=== PATIENT | female | born 1935 | race Caucasian/White ===

== ENCOUNTER 2018-07-19 08:00 | Inpatient (IN) ==
[2018-07-19] MEDS ORDERED: SODIUM CHLORIDE 0.9% 500 ML IV STA (08:29)
[2018-07-19] MEDS ORDERED: PIPERACILLIN/TAZOBACTAM 3,375 MG in SODIUM CHLORIDE 0.9% 100 ML IV STA (08:29)
[2018-07-19 08:45] LABS: Basophils # 0.1 10*3/uL (0.0-0.2); Basophils % 0.6 % (0.0-0.8); Eosinophils # 0.3 10*3/uL (0.0-0.87); Eosinophils % 3.3 % (0.00-10.9); Hematocrit 34.2 VOL% (35.7-47.0); Hemoglobin 10.7 GM/DL (12.0-16.0); Immature Granulocytes % 1.1 %; Immature Granulocytes Absolute 0.11 #; Lymphocytes # 1.6 10*3/uL (1.4-4.0); Lymphocytes % 15.9 % (21.3-54.2); Mean Corpuscular HGB Conc 31.3 GM/DL (32-36); Mean Corpuscular Hemoglobin 32 PG (27-34); Mean Corpuscular Volume 103.3 FL (87-102); Mean Platelet Volume 11.6 FL (9.6-12.0); Monocytes % 10.4 % (1.7-12.7); NRBC # 0.06 10*3/uL; Neutrophils # 6.7 10*3/uL (1.4-7.4); Neutrophils % 68.7 % (38.7-73.9); Platelet Count 160 T/CUMM (130-400); Red Blood Count 3.31 MC/CUMM (3.8-5.5); Red Cell Distribution Width 18.2 % (9.3-17.3); White Blood Count 9.8 T/CUMM (4-12)
[2018-07-19 08:54] LABS: Apearance,Urine Slightly Hazy (Clear); Bilirubin,Urine Negative (Negative); Blood, Urine Negative (Negative); Glucose,Urine (UA) >=500 mg/dL (Negative); Ketones,Urine Negative (Negative); Nitrite,Urine Negative (Negative); Protein,Urine 30 MG/DL; RBC,Urine 2 /HPF (0-4); Squamous Epithelial Cell,Urine Occasional /HPF (0-10); Urine Color Yellow (Yellow); Urine Specific Gravity 1.015 (1.001-1.035); Urine Urobilinogen < 2.0 EU/DL (0.2-1.0); WBC,Urine <1 /HPF (0-6)
[2018-07-19 09:12] LABS: Albumin 2.7 G/DL (3.4-5.0); Bilirubin,Total 0.7 MG/DL (0.2-1.0); Calcium 9.2 MG/DL (8.5-10.1); Osmolality,Calculated 301.8 MOS/KG (273-304); Potassium 4.6 MMOL/L (3.5-5.1); Total Protein 7.8 G/DL (6.4-8.3)
[2018-07-19] MEDS ORDERED: PIPERACILLIN/TAZOBACTAM 3,375 MG VIAL IV ONE (09:14)
[2018-07-19] MEDS: ENOXAPARIN 40 MG/0.4 ML SYRINGE SUBCUT SCH (12:55)
[2018-07-19] MEDS: DORNASE ALFA 2.5 MG/2.5 ML VIAL RESP TX SCH ×2 (13:15→20:45)
[2018-07-19] MEDS: ALBUTEROL/IPRATROPIUM 3 ML NEB RESP TX SCH ×2 (13:15→20:45)
[2018-07-19] MEDS: PIPERACILLIN/TAZOBACTAM 3,375 MG in SODIUM CHLORIDE 0.9% 100 ML IV SCH (16:01)
[2018-07-19] MEDS: ONDANSETRON 4 MG/2 ML VIAL IV PRN (22:53)
[2018-07-20] MEDS: PIPERACILLIN/TAZOBACTAM 3,375 MG in SODIUM CHLORIDE 0.9% 100 ML IV SCH ×3 (00:15→16:59)
[2018-07-20] MEDS: ALBUTEROL/IPRATROPIUM 3 ML NEB RESP TX SCH ×4 (00:30→19:48)
[2018-07-20 05:42] LABS: Basophils % 0.3 % (0.0-0.8); Eosinophils # 0.1 10*3/uL (0.0-0.87); Eosinophils % 0.8 % (0.00-10.9); Hematocrit 31.4 VOL% (35.7-47.0); Immature Granulocytes Absolute 0.11 #; Lymphocytes # 0.8 10*3/uL (1.4-4.0); Lymphocytes % 7.4 % (21.3-54.2); Mean Corpuscular HGB Conc 31.8 GM/DL (32-36); Mean Corpuscular Hemoglobin 33 PG (27-34); Mean Corpuscular Volume 102.6 FL (87-102); Mean Platelet Volume 11.3 FL (9.6-12.0); Monocytes # 0.4 10*3/uL (0.11-0.8); Neutrophils # 9.2 10*3/uL (1.4-7.4); Neutrophils % 86.5 % (38.7-73.9); Platelet Count 148 T/CUMM (130-400); Red Blood Count 3.06 MC/CUMM (3.8-5.5); Red Cell Distribution Width 18.6 % (9.3-17.3); White Blood Count 10.6 T/CUMM (4-12)
[2018-07-20 06:20] LABS: Calcium 8.7 MG/DL (8.5-10.1); Osmolality,Calculated 303.4 MOS/KG (273-304); Potassium 3.8 MMOL/L (3.5-5.1); Thyroid Stimulating Hormone 0.647 uIU/ml (0.358-3.74)
[2018-07-20] MEDS: DORNASE ALFA 2.5 MG/2.5 ML VIAL RESP TX SCH ×2 (06:48→19:49)
[2018-07-20] MEDS: ENOXAPARIN 40 MG/0.4 ML SYRINGE SUBCUT SCH (10:45)
[2018-07-20] MEDS: INSULIN LISPRO 100 UNIT/ML SUBCUT SCH ×2 (13:32→19:15)
[2018-07-20] MEDS ORDERED: traMADol 50 MG TABLET PO PRN (14:50)
[2018-07-20] MEDS: ONDANSETRON 4 MG/2 ML VIAL IV PRN (15:11)
[2018-07-20] MEDS: traMADol 50 MG TABLET PO PRN (23:05)
[2018-07-21] MEDS: ALBUTEROL/IPRATROPIUM 3 ML NEB RESP TX SCH ×4 (01:11→19:44)
[2018-07-21] MEDS: INSULIN LISPRO 100 UNIT/ML SUBCUT SCH ×4 (01:32→18:09)
[2018-07-21] MEDS: PIPERACILLIN/TAZOBACTAM 3,375 MG in SODIUM CHLORIDE 0.9% 100 ML IV SCH ×2 (01:32→08:02)
[2018-07-21 04:55] LABS: Basophils # 0.1 10*3/uL (0.0-0.2); Basophils % 0.6 % (0.0-0.8); Eosinophils # 0.3 10*3/uL (0.0-0.87); Eosinophils % 3.3 % (0.00-10.9); Hematocrit 30.8 VOL% (35.7-47.0); Hemoglobin 9.5 GM/DL (12.0-16.0); Immature Granulocytes % 0.7 %; Immature Granulocytes Absolute 0.06 #; Lymphocytes # 1.8 10*3/uL (1.4-4.0); Lymphocytes % 20.2 % (21.3-54.2); Mean Corpuscular HGB Conc 30.8 GM/DL (32-36); Mean Corpuscular Hemoglobin 32 PG (27-34); Mean Corpuscular Volume 104.1 FL (87-102); Mean Platelet Volume 11.5 FL (9.6-12.0); Monocytes # 0.6 10*3/uL (0.11-0.8); Monocytes % 6.5 % (1.7-12.7); NRBC # 0.04 10*3/uL; Neutrophils # 6.2 10*3/uL (1.4-7.4); Neutrophils % 68.7 % (38.7-73.9); Platelet Count 147 T/CUMM (130-400); Red Blood Count 2.96 MC/CUMM (3.8-5.5); Red Cell Distribution Width 18.2 % (9.3-17.3); White Blood Count 9.1 T/CUMM (4-12)
[2018-07-21 05:18] LABS: Calcium 8.5 MG/DL (8.5-10.1); Osmolality,Calculated 299.7 MOS/KG (273-304); Potassium 4.3 MMOL/L (3.5-5.1)
[2018-07-21] MEDS: DORNASE ALFA 2.5 MG/2.5 ML VIAL RESP TX SCH ×2 (07:11→19:49)
[2018-07-21] MEDS: ENOXAPARIN 40 MG/0.4 ML SYRINGE SUBCUT SCH (08:01)
[2018-07-21] MEDS: cefTRIAXone 1,000 MG in SYRINGE 1 EACH IV SCH (10:58)
[2018-07-21] MEDS: INSULIN GLARGINE 100 UNIT/ML SUBCUT SCH (13:43)
[2018-07-21] MEDS: AZITHROMYCIN INJ 500 MG in SODIUM CHLORIDE 0.9% 250 ML IV SCH (15:26)
[2018-07-21] MEDS: traMADol 50 MG TABLET PO PRN ×2 (18:09→22:46)
[2018-07-21] MEDS: ONDANSETRON 4 MG/2 ML VIAL IV PRN (22:47)
[2018-07-22] MEDS: INSULIN LISPRO 100 UNIT/ML SUBCUT SCH ×4 (01:52→18:04)
[2018-07-22] MEDS: ALBUTEROL/IPRATROPIUM 3 ML NEB RESP TX SCH ×4 (01:58→19:17)
[2018-07-22 06:52] LABS: Prealbumin 16.9 MG/DL (20-40)
[2018-07-22] MEDS: DORNASE ALFA 2.5 MG/2.5 ML VIAL RESP TX SCH ×3 (07:12→19:21)
[2018-07-22] MEDS: MULTIVITAMIN LIQUID (CENTRUM) 60 ML BOTTLE PEG SCH (09:47)
[2018-07-22] MEDS: traMADol 50 MG TABLET PO PRN ×3 (09:47→22:29)
[2018-07-22] MEDS: cefTRIAXone 1,000 MG in SYRINGE 1 EACH IV SCH (09:48)
[2018-07-22] MEDS: ENOXAPARIN 40 MG/0.4 ML SYRINGE SUBCUT SCH (09:48)
[2018-07-22] MEDS: INSULIN GLARGINE 100 UNIT/ML SUBCUT SCH (09:48)
[2018-07-22] MEDS: AZITHROMYCIN INJ 500 MG in SODIUM CHLORIDE 0.9% 250 ML IV SCH (09:53)
[2018-07-22] MEDS: NYSTATIN 500,000 UNIT/5 ML UDCUP SWISH/SWAL SCH ×3 (13:52→22:30)
[2018-07-23] MEDS: ALBUTEROL/IPRATROPIUM 3 ML NEB RESP TX SCH ×4 (00:24→19:06)
[2018-07-23] MEDS: INSULIN LISPRO 100 UNIT/ML SUBCUT SCH ×4 (00:27→17:02)
[2018-07-23] MEDS: traMADol 50 MG TABLET PO PRN ×2 (01:11→17:02)
[2018-07-23] MEDS: DORNASE ALFA 2.5 MG/2.5 ML VIAL RESP TX SCH ×2 (07:33→19:15)
[2018-07-23] MEDS: ENOXAPARIN 40 MG/0.4 ML SYRINGE SUBCUT SCH (08:49)
[2018-07-23] MEDS: NYSTATIN 500,000 UNIT/5 ML UDCUP SWISH/SWAL SCH ×4 (08:49→23:37)
[2018-07-23] MEDS: INSULIN GLARGINE 100 UNIT/ML SUBCUT SCH (08:49)
[2018-07-23] MEDS: MULTIVITAMIN LIQUID (CENTRUM) 60 ML BOTTLE PEG SCH (08:50)
[2018-07-23] MEDS: cefTRIAXone 1,000 MG in SYRINGE 1 EACH IV SCH (08:50)
[2018-07-23] MEDS: AZITHROMYCIN INJ 500 MG in SODIUM CHLORIDE 0.9% 250 ML IV SCH (08:51)
[2018-07-23] MEDS ORDERED: INSULIN GLARGINE 100 UNIT/ML SUBCUT ONE (11:30)
[2018-07-24] MEDS: ALBUTEROL/IPRATROPIUM 3 ML NEB RESP TX SCH ×3 (00:39→14:03)
[2018-07-24] MEDS: INSULIN LISPRO 100 UNIT/ML SUBCUT SCH ×3 (01:07→11:45)
[2018-07-24 05:46] LABS: Calcium 9.7 MG/DL (8.5-10.1); Osmolality,Calculated 296.3 MOS/KG (273-304); Potassium 4.7 MMOL/L (3.5-5.1); Prealbumin 15.7 MG/DL (20-40)
[2018-07-24] MEDS: ENOXAPARIN 40 MG/0.4 ML SYRINGE SUBCUT SCH (08:33)
[2018-07-24] MEDS: cefTRIAXone 1,000 MG in SYRINGE 1 EACH IV SCH (08:34)
[2018-07-24] MEDS: MULTIVITAMIN LIQUID (CENTRUM) 60 ML BOTTLE PEG SCH (08:34)
[2018-07-24] MEDS: NYSTATIN 500,000 UNIT/5 ML UDCUP SWISH/SWAL SCH ×2 (08:34→12:35)
[2018-07-24] MEDS: AZITHROMYCIN INJ 500 MG in SODIUM CHLORIDE 0.9% 250 ML IV SCH (08:34)
[2018-07-24] MEDS: DORNASE ALFA 2.5 MG/2.5 ML VIAL RESP TX SCH (08:53)
[2018-07-24] MEDS ORDERED: INSULIN GLARGINE 100 UNIT/ML SUBCUT SCH (09:00)
[2018-07-24] MEDS: traMADol 50 MG TABLET PO PRN (12:36)
[2018-07-24 16:37] VITALS: BP 158/90
== END 2018-07-24 17:11 | disposition home health service (06) | DRG 178 ==
LOC: EDBD → EDUNIT# → N.ED 08:00 → N.EDINP 10:13 → N.2E 10:59
PROVIDERS: ADMIT Internal Medicine; ATTEND Internal Medicine

== ENCOUNTER 2018-10-16 05:03 | Inpatient (IN) ==
[2018-10-16] MEDS ORDERED: ONDANSETRON 4 MG/2 ML VIAL IV STA (05:15)
[2018-10-16 05:56] LABS: Basophils # 0.1 10*3/uL (0.0-0.2); Basophils % 0.3 % (0.0-0.8); Eosinophils % 0.1 % (0.00-10.9); Hematocrit 36.7 VOL% (35.7-47.0); Hemoglobin 11.8 GM/DL (12.0-16.0); Immature Granulocytes % 0.7 %; Immature Granulocytes Absolute 0.12 #; Lymphocytes # 0.5 10*3/uL (1.4-4.0); Mean Corpuscular HGB Conc 32.2 GM/DL (32-36); Mean Corpuscular Hemoglobin 33 PG (27-34); Mean Corpuscular Volume 102.2 FL (87-102); Mean Platelet Volume 11.5 FL (9.6-12.0); Monocytes # 0.2 10*3/uL (0.11-0.8); Monocytes % 1.2 % (1.7-12.7); NRBC # 0.08 10*3/uL; Neutrophils # 16.2 10*3/uL (1.4-7.4); Neutrophils % 94.7 % (38.7-73.9); Platelet Count 172 T/CUMM (130-400); Red Blood Count 3.59 MC/CUMM (3.8-5.5); Red Cell Distribution Width 17.4 % (9.3-17.3); White Blood Count 17.1 T/CUMM (4-12)
[2018-10-16 06:13] LABS: Alanine Aminotransferase 29 U/L (13-56); Albumin 3.1 G/DL (3.4-5.0); Alkaline Phosphatase 100 U/L (45-117); Aspartate Amino Transferase 44 U/L (0-37); Blood Urea Nitrogen 55 MG/DL (7-18); Calcium 9.5 MG/DL (8.5-10.1); Glucose 311 MG/DL (74-106); Lipase < 50.0 U/L (73-393); Osmolality,Calculated 296.1 MOS/KG (273-304); Potassium 3.9 MMOL/L (3.5-5.1); Sodium 135 MMOL/L (136-145); Total Protein 7.6 G/DL (6.4-8.3)
[2018-10-16 06:22] LABS: Band Neutrophils 2 % (0-10); Hypochromasia 1+; Lymphocytes 1 % (20-55); Platelet Estimate Adequate; Segmented Neutrophils 96 % (50-85); Total Cells Counted 100
[2018-10-16] MEDS: PANTOPRAZOLE 40 MG TABLET PO SCH (09:55)
[2018-10-16] MEDS: PIPERACILLIN/TAZOBACTAM 3,375 MG in SODIUM CHLORIDE 0.9% 100 ML IV SCH ×2 (09:56→17:33)
[2018-10-16] MEDS: SODIUM CHLORIDE 0.9% 1,000 ML IV SCH (10:40)
[2018-10-16] MEDS: ONDANSETRON 4 MG/2 ML VIAL IV PRN (10:44)
[2018-10-16 10:52] LABS: Troponin I 0.677 NG/ML (0.00-0.045)
[2018-10-16 11:05] LABS: Apearance,Urine Slightly Hazy (Clear); Bilirubin,Urine Negative (Negative); Blood, Urine Negative (Negative); Glucose,Urine (UA) 50 mg/dL (Negative); Ketones,Urine Negative (Negative); Nitrite,Urine Negative (Negative); Protein,Urine 30 MG/DL; RBC,Urine 7 /HPF (0-4); Squamous Epithelial Cell,Urine Few /HPF (0-10); Urine Color Yellow (Yellow); Urine Specific Gravity > 1.060 (1.001-1.035); Urine Urobilinogen < 2.0 EU/DL (0.2-1.0); WBC,Urine 1 /HPF (0-6)
[2018-10-16] MEDS: POLYETHYLENE GLYCOL POWDER 17 GM PACK PO SCH (11:45)
[2018-10-16] MEDS ORDERED: GLUCAGON 1 MG VIAL IM PRN (13:45)
[2018-10-16] MEDS ORDERED: DEXTROSE 50% 25 GM/50 ML VIAL IV PRN (13:45)
[2018-10-16] MEDS ORDERED: INFLUENZA VIRUS VACCINE 0.5 ML SYRINGE IM ONE (15:28)
[2018-10-16 16:51] LABS: Troponin I 0.625 NG/ML (0.00-0.045)
[2018-10-16] MEDS: INSULIN LISPRO 100 UNIT/ML SUBCUT SCH ×2 (17:25→23:35)
[2018-10-16] MEDS: ATORVASTATIN 20 MG TABLET PO SCH (22:17)
[2018-10-16] MEDS: traZODone 50 MG TABLET PO SCH (23:35)
[2018-10-17] MEDS: PIPERACILLIN/TAZOBACTAM 3,375 MG in SODIUM CHLORIDE 0.9% 100 ML IV SCH ×3 (00:28→17:06)
[2018-10-17] MEDS: ONDANSETRON 4 MG/2 ML VIAL IV PRN (03:19)
[2018-10-17] MEDS: INSULIN LISPRO 100 UNIT/ML SUBCUT SCH ×6 (04:17→21:31)
[2018-10-17 07:00] LABS: Bilirubin,Direct 0.24 MG/DL (0.0-0.20); Bilirubin,Indirect 0.6 MG/DL (0.0-1.0); Bilirubin,Total 0.8 MG/DL (0.2-1.0); Total Protein 5.2 G/DL (6.4-8.3)
[2018-10-17] MEDS: DULoxetine 30 MG CAPSULE PO SCH (08:13)
[2018-10-17] MEDS: POLYETHYLENE GLYCOL POWDER 17 GM PACK PO SCH ×2 (08:13→21:32)
[2018-10-17] MEDS: LEVOTHYROXINE 150 MCG TABLET PO SCH (08:13)
[2018-10-17] MEDS: PANTOPRAZOLE 40 MG TABLET PO SCH (08:13)
[2018-10-17] MEDS: INSULIN ASPART PROTAMINE/ASPART 70/30 100 UNIT/ML SUBCUT SCH (08:13)
[2018-10-17] MEDS: SODIUM CHLORIDE 0.9% 1,000 ML IV SCH ×3 (08:57→17:07)
[2018-10-17] MEDS ORDERED: POLYETHYLENE GLYCOL POWDER 17 GM PACK PO SCH (09:00)
[2018-10-17 09:09] LABS: Osmolality,Calculated 304.1 MOS/KG (273-304); Potassium 3.9 MMOL/L (3.5-5.1)
[2018-10-17] MEDS ORDERED: traMADol 50 MG TABLET PO PRN (10:59)
[2018-10-17] MEDS: ZINC OXIDE PASTE 113 GM TUBE TOP SCH ×2 (14:58→21:32)
[2018-10-17] MEDS: LACTULOSE 20 GM/30 ML UDCUP PO SCH (21:31)
[2018-10-17] MEDS: ATORVASTATIN 20 MG TABLET PO SCH (21:32)
[2018-10-17] MEDS: traZODone 50 MG TABLET PO SCH (21:32)
[2018-10-18] MEDS: PIPERACILLIN/TAZOBACTAM 3,375 MG in SODIUM CHLORIDE 0.9% 100 ML IV SCH ×2 (00:14→09:12)
[2018-10-18 05:44] LABS: Calcium 8.4 MG/DL (8.5-10.1)
[2018-10-18] MEDS: POLYETHYLENE GLYCOL POWDER 17 GM PACK PO SCH ×3 (09:00→21:01)
[2018-10-18] MEDS: LACTULOSE 20 GM/30 ML UDCUP PO SCH (09:00)
[2018-10-18] MEDS: INSULIN LISPRO 100 UNIT/ML SUBCUT SCH ×4 (09:12→20:14)
[2018-10-18] MEDS: PANTOPRAZOLE 40 MG TABLET PO SCH (09:12)
[2018-10-18] MEDS: LEVOTHYROXINE 150 MCG TABLET PO SCH (09:12)
[2018-10-18] MEDS: DULoxetine 30 MG CAPSULE PO SCH (09:12)
[2018-10-18] MEDS: ZINC OXIDE PASTE 113 GM TUBE TOP SCH ×2 (09:13→20:49)
[2018-10-18] MEDS: INSULIN ASPART PROTAMINE/ASPART 70/30 100 UNIT/ML SUBCUT SCH (09:13)
[2018-10-18] MEDS ORDERED: traZODone 50 MG TABLET PO PRN (12:13)
[2018-10-18] MEDS: MEROPENEM 500 MG in SODIUM CHLORIDE 0.9% 100 ML IV SCH (14:20)
[2018-10-18] MEDS: ASPIRIN CHEW 81 MG TABLET PO SCH (15:15)
[2018-10-18] MEDS: SODIUM CHLORIDE 0.9% 1,000 ML IV SCH ×2 (19:00→20:45)
[2018-10-18] MEDS: INSULIN GLARGINE 100 UNIT/ML SUBCUT SCH (20:48)
[2018-10-18] MEDS: ATORVASTATIN 20 MG TABLET PO SCH (20:48)
[2018-10-18] MEDS: ONDANSETRON 4 MG/2 ML VIAL IV PRN (22:23)
[2018-10-19] MEDS: MEROPENEM 500 MG in SODIUM CHLORIDE 0.9% 100 ML IV SCH ×2 (00:08→18:18)
[2018-10-19 05:01] LABS: Basophils % 0.3 % (0.0-0.8); Eosinophils # 0.4 10*3/uL (0.0-0.87); Eosinophils % 6.4 % (0.00-10.9); Hematocrit 27.1 VOL% (35.7-47.0); Hemoglobin 8.6 GM/DL (12.0-16.0); Immature Granulocytes % 0.3 %; Immature Granulocytes Absolute 0.02 #; Lymphocytes # 0.7 10*3/uL (1.4-4.0); Mean Corpuscular HGB Conc 31.7 GM/DL (32-36); Mean Corpuscular Hemoglobin 33 PG (27-34); Mean Platelet Volume 11.9 FL (9.6-12.0); Monocytes # 0.3 10*3/uL (0.11-0.8); Monocytes % 4.7 % (1.7-12.7); NRBC # 0.03 10*3/uL; Neutrophils # 4.5 10*3/uL (1.4-7.4); Neutrophils % 76.3 % (38.7-73.9); Red Blood Count 2.63 MC/CUMM (3.8-5.5); Red Cell Distribution Width 17.6 % (9.3-17.3); White Blood Count 5.9 T/CUMM (4-12)
[2018-10-19 05:06] LABS: Platelet Count 67 T/CUMM (130-400)
[2018-10-19 05:57] LABS: Free T4 (Free Thyroxine) 1.04 NG/DL (0.76-1.46); Thyroid Stimulating Hormone 1.13 uIU/ml (0.358-3.74)
[2018-10-19] MEDS: SODIUM CHLORIDE 0.9% 1,000 ML IV SCH ×3 (06:23→16:23)
[2018-10-19 06:46] LABS: Hypochromasia Slight; Macrocytosis 1+; Platelet Estimate Decreased; Polychromasia Few; Tear Drop Cells Few
[2018-10-19] MEDS: INSULIN LISPRO 100 UNIT/ML SUBCUT SCH ×4 (08:53→22:02)
[2018-10-19] MEDS: ASPIRIN CHEW 81 MG TABLET PO SCH (08:54)
[2018-10-19] MEDS: PANTOPRAZOLE 40 MG TABLET PO SCH (08:54)
[2018-10-19] MEDS: INSULIN GLARGINE 100 UNIT/ML SUBCUT SCH ×2 (08:54→22:01)
[2018-10-19] MEDS: DULoxetine 30 MG CAPSULE PO SCH (08:55)
[2018-10-19] MEDS: LEVOTHYROXINE 150 MCG TABLET PO SCH (08:55)
[2018-10-19] MEDS: ZINC OXIDE PASTE 113 GM TUBE TOP SCH ×2 (08:55→22:03)
[2018-10-19] MEDS: POLYETHYLENE GLYCOL POWDER 17 GM PACK PO SCH ×2 (08:55→22:03)
[2018-10-19 10:51] LABS: Calcium 7.8 MG/DL (8.5-10.1); Potassium 4.5 MMOL/L (3.5-5.1)
[2018-10-19] MEDS ORDERED: cefTRIAXone 2,000 MG in SYRINGE 1 EACH IV SCH (11:00)
[2018-10-19] MEDS ORDERED: diphenhydrAMINE 50 MG/1 ML VIAL IV ONE (12:40)
[2018-10-19] MEDS: ATORVASTATIN 20 MG TABLET PO SCH (22:03)
[2018-10-20] MEDS: SODIUM CHLORIDE 0.9% 1,000 ML IV SCH ×3 (02:05→16:30)
[2018-10-20] MEDS: MEROPENEM 500 MG in SODIUM CHLORIDE 0.9% 100 ML IV SCH (05:50)
[2018-10-20 06:39] LABS: Basophils % 0.4 % (0.0-0.8); Eosinophils # 0.5 10*3/uL (0.0-0.87); Eosinophils % 6.9 % (0.00-10.9); Hematocrit 30.9 VOL% (35.7-47.0); Hemoglobin 9.7 GM/DL (12.0-16.0); Immature Granulocytes % 0.8 %; Immature Granulocytes Absolute 0.06 #; Lymphocytes # 0.8 10*3/uL (1.4-4.0); Lymphocytes % 10.9 % (21.3-54.2); Mean Corpuscular HGB Conc 31.4 GM/DL (32-36); Mean Corpuscular Hemoglobin 32 PG (27-34); Mean Corpuscular Volume 103.3 FL (87-102); Mean Platelet Volume 11.3 FL (9.6-12.0); Monocytes # 0.6 10*3/uL (0.11-0.8); Monocytes % 7.7 % (1.7-12.7); NRBC # 0.03 10*3/uL; Neutrophils # 5.6 10*3/uL (1.4-7.4); Neutrophils % 73.3 % (38.7-73.9); Platelet Count 94 T/CUMM (130-400); Red Blood Count 2.99 MC/CUMM (3.8-5.5); Red Cell Distribution Width 17.7 % (9.3-17.3); White Blood Count 7.7 T/CUMM (4-12)
[2018-10-20 06:55] LABS: % Iron Saturation 22.2 % (18-50); Ferritin 135.3 ng/ml (8-252); Hypochromasia 1+; Platelet Estimate Decreased
[2018-10-20 07:01] LABS: Folate 15.6 NG/ML (5.4-24.0); Vitamin B12 1374 PG/ML (211-911)
[2018-10-20 07:07] LABS: Calcium 7.9 MG/DL (8.5-10.1); Osmolality,Calculated 299.7 MOS/KG (273-304); Potassium 4.1 MMOL/L (3.5-5.1); Prealbumin 14.5 MG/DL (20-40)
[2018-10-20 07:45] LABS: Sedimentation Rate-Westergren 104 MM/HR (0-30)
[2018-10-20] MEDS: INSULIN LISPRO 100 UNIT/ML SUBCUT SCH ×4 (08:00→21:18)
[2018-10-20] MEDS: DULoxetine 30 MG CAPSULE PO SCH (08:10)
[2018-10-20] MEDS: PANTOPRAZOLE 40 MG TABLET PO SCH (08:10)
[2018-10-20] MEDS: ASPIRIN CHEW 81 MG TABLET PO SCH (08:10)
[2018-10-20] MEDS: POLYETHYLENE GLYCOL POWDER 17 GM PACK PO SCH ×2 (08:10→21:19)
[2018-10-20] MEDS: LEVOTHYROXINE 150 MCG TABLET PO SCH (08:10)
[2018-10-20] MEDS: INSULIN GLARGINE 100 UNIT/ML SUBCUT SCH ×2 (08:11→21:17)
[2018-10-20 09:45] LABS: Hemoglobin A1 (Alkaline) 97.2 % (96.5-98.5); Hemoglobin A2 (Alkaline) 2.8 % (1.5-3.5)
[2018-10-20] MEDS: ZINC OXIDE PASTE 113 GM TUBE TOP SCH ×2 (10:39→21:19)
[2018-10-20] MEDS ORDERED: LEVOFLOXACIN INJ 500 MG in PREMIX 1 EACH IV SCH (13:00)
[2018-10-20] MEDS: hydrALAZINE 25 MG TABLET PEG SCH (21:18)
[2018-10-20] MEDS: ATORVASTATIN 20 MG TABLET PO SCH (21:19)
[2018-10-20] MEDS: ONDANSETRON 4 MG/2 ML VIAL IV PRN (23:18)
[2018-10-21] MEDS: SODIUM CHLORIDE 0.9% 1,000 ML IV SCH ×2 (02:57→16:33)
[2018-10-21 05:55] LABS: Basophils % 0.6 % (0.0-0.8); Eosinophils # 0.5 10*3/uL (0.0-0.87); Eosinophils % 7.6 % (0.00-10.9); Hematocrit 29.5 VOL% (35.7-47.0); Hemoglobin 9.3 GM/DL (12.0-16.0); Immature Granulocytes % 2.3 %; Immature Granulocytes Absolute 0.15 #; Lymphocytes # 0.9 10*3/uL (1.4-4.0); Lymphocytes % 14.4 % (21.3-54.2); Mean Corpuscular HGB Conc 31.5 GM/DL (32-36); Mean Corpuscular Hemoglobin 32 PG (27-34); Mean Corpuscular Volume 102.1 FL (87-102); Mean Platelet Volume 11.2 FL (9.6-12.0); Monocytes # 0.7 10*3/uL (0.11-0.8); Monocytes % 10.8 % (1.7-12.7); NRBC # 0.02 10*3/uL; Neutrophils # 4.1 10*3/uL (1.4-7.4); Neutrophils % 64.3 % (38.7-73.9); Platelet Count 123 T/CUMM (130-400); Red Blood Count 2.89 MC/CUMM (3.8-5.5); Red Cell Distribution Width 17.6 % (9.3-17.3); White Blood Count 6.4 T/CUMM (4-12)
[2018-10-21 06:19] LABS: Calcium 8.3 MG/DL (8.5-10.1); Osmolality,Calculated 306.3 MOS/KG (273-304); Potassium 3.9 MMOL/L (3.5-5.1)
[2018-10-21] MEDS: INSULIN LISPRO 100 UNIT/ML SUBCUT SCH ×3 (09:53→16:34)
[2018-10-21] MEDS: INSULIN GLARGINE 100 UNIT/ML SUBCUT SCH (09:53)
[2018-10-21] MEDS: LEVOTHYROXINE 150 MCG TABLET PO SCH (09:54)
[2018-10-21] MEDS: POLYETHYLENE GLYCOL POWDER 17 GM PACK PO SCH (09:54)
[2018-10-21] MEDS: ASPIRIN CHEW 81 MG TABLET PO SCH (09:54)
[2018-10-21] MEDS: ZINC OXIDE PASTE 113 GM TUBE TOP SCH (09:54)
[2018-10-21] MEDS: hydrALAZINE 25 MG TABLET PEG SCH (09:54)
[2018-10-21] MEDS: PANTOPRAZOLE 40 MG TABLET PO SCH (09:54)
[2018-10-21] MEDS: DULoxetine 30 MG CAPSULE PO SCH (09:54)
[2018-10-21 11:50] VITALS: BP 177/90
== END 2018-10-21 18:25 | disposition home health service (06) | DRG 872 ==
LOC: EDUNIT# → EDBD → N.ED 05:03 → N.EDINP 08:56 → SUATTDRO 08:56 → N.EDINP 14:55 → N.5E 15:03
PROVIDERS: ADMIT Hospitalist; ATTEND Internal Medicine

== ENCOUNTER 2018-12-14 10:33 | Inpatient (IN) ==
[2018-12-14] MEDS ORDERED: LEVOFLOXACIN INJ 500 MG in PREMIX 1 EACH IV STA (10:49)
[2018-12-14] MEDS ORDERED: FUROSEMIDE 100 MG/10 ML VIAL IV STA (10:49)
[2018-12-14] MEDS ORDERED: ALBUTEROL NEB SOLN 5 MG/ML 20 ML/BOTTLE RESP TX SCH (11:00)
[2018-12-14 11:10] LABS: ABG Base Excess 13.3 MMOL/L (-2.5-2.5); ABG HCO3 37.1 MMOL/L (20-26); ABG Oxygen Saturation 95.7 % (95-100); ABG PH 7.284 (7.35-7.45); ABG PO2 84.6 MM HG (80-95); ABG TCO2 40.5 MMOL/L (23-27); Allen Test Positive
[2018-12-14 11:11] LABS: ABG PCO2 91.9 MM HG (35-48)
[2018-12-14 11:38] LABS: Basophils # 0.1 10*3/uL (0.0-0.2); Basophils % 0.5 % (0.0-0.8); Eosinophils # 0.3 10*3/uL (0.0-0.87); Eosinophils % 1.8 % (0.00-10.9); Hematocrit 31.7 VOL% (35.7-47.0); Hemoglobin 9.3 GM/DL (12.0-16.0); Immature Granulocytes % 5.2 %; Immature Granulocytes Absolute 0.74 #; Lymphocytes # 1.4 10*3/uL (1.4-4.0); Lymphocytes % 9.8 % (21.3-54.2); Mean Corpuscular HGB Conc 29.3 GM/DL (32-36); Mean Corpuscular Volume 102.6 FL (87-102); Mean Platelet Volume 12.7 FL (9.6-12.0); Monocytes % 12.4 % (1.7-12.7); NRBC # 0.06 10*3/uL; Neutrophils % 70.3 % (38.7-73.9); Platelet Count 155 T/CUMM (130-400); Red Blood Count 3.09 MC/CUMM (3.8-5.5); Red Cell Distribution Width 15.9 % (9.3-17.3); White Blood Count 14.3 T/CUMM (4-12)
[2018-12-14 12:02] LABS: Band Neutrophils 16 % (0-10); Eosinophils 2 % (0-10); Lymphocytes 15 % (20-55); Metamyelocytes 1 %; Segmented Neutrophils 66 % (50-85); Total Cells Counted 100
[2018-12-14 12:03] LABS: Anisocytosis Slight; Basophilic Stippling Slight; Platelet Estimate Adequate
[2018-12-14 12:04] LABS: Macrocytosis Slight
[2018-12-14 12:15] LABS: ABG Base Excess 12.5 MMOL/L (-2.5-2.5); ABG HCO3 36.3 MMOL/L (20-26); ABG Oxygen Saturation 98.3 % (95-100); ABG PH 7.262 (7.35-7.45); ABG TCO2 40.2 MMOL/L (23-27); Allen Test Positive; Pt O2 Delivery Device BIPAP
[2018-12-14 12:17] LABS: ABG PCO2 95.5 MM HG (35-48)
[2018-12-14 12:21] LABS: Apearance,Urine CLOUDY (Clear); Bacteria,Urine Few /HPF (Few); Bilirubin,Urine Negative (Negative); Blood, Urine Negative (Negative); Glucose,Urine (UA) Negative (Negative); Ketones,Urine Negative (Negative); Nitrite,Urine Negative (Negative); Protein,Urine 100 MG/DL; RBC,Urine 28 /HPF (0-4); Squamous Epithelial Cell,Urine Many /HPF (0-10); Urine Color Amber (Yellow); Urine Specific Gravity 1.017 (1.001-1.035); Urine Urobilinogen < 2.0 EU/DL (0.2-1.0); WBC,Urine 142 /HPF (0-6)
[2018-12-14] MEDS ORDERED: ETOMIDATE 20 MG/10 ML VIAL IV ONE (13:20)
[2018-12-14] MEDS ORDERED: ROCURONIUM 100 MG/10 ML VIAL IV ONE (13:21)
[2018-12-14] MEDS ORDERED: ALBUTEROL/IPRATROPIUM 3 ML NEB RESP TX PRN (14:20)
[2018-12-14] MEDS ORDERED: GLUCAGON 1 MG VIAL IM PRN (14:21)
[2018-12-14] MEDS ORDERED: DEXTROSE 50% 25 GM/50 ML VIAL IV PRN (14:21)
[2018-12-14] MEDS: PROPOFOL 1,000 MG/100 ML BOTTLE IV SCH (14:30)
[2018-12-14] MEDS ORDERED: CLINDAMYCIN INJ 600 MG in PREMIX 1 EACH IV SCH (14:30)
[2018-12-14 15:12] LABS: ABG Base Excess 16.5 MMOL/L (-2.5-2.5); ABG HCO3 40.5 MMOL/L (20-26); ABG TCO2 36.8 MMOL/L (23-27); Allen Test Positive; Pt O2 Delivery Device Ventilator
[2018-12-14 15:35] LABS: ABG PH 7.598 (7.35-7.45)
[2018-12-14] MEDS: PIPERACILLIN/TAZOBACTAM 3,375 MG in SODIUM CHLORIDE 0.9% 100 ML IV SCH (15:53)
[2018-12-14] MEDS ORDERED: METOPROLOL TARTRATE 5 MG/5 ML VIAL IV STA (17:30)
[2018-12-14] MEDS ORDERED: LEVOFLOXACIN INJ 500 MG in PREMIX 1 EACH IV SCH (18:00)
[2018-12-14] MEDS: FUROSEMIDE 40 MG/4 ML VIAL IV SCH (19:07)
[2018-12-14] MEDS ORDERED: dilTIAZem Drip 125 MG/125 ML PREMIX IV SCH (19:30)
[2018-12-14] MEDS: MIDAZOLAM 100 MG in SODIUM CHLORIDE 0.9% 80 ML IV PRN (22:45)
[2018-12-15] MEDS: ATORVASTATIN 40 MG TABLET PO SCH ×2 (00:09→20:22)
[2018-12-15] MEDS: PHENYLEPHRINE DRIP 40 MG/250 ML PREMIX IV PRN (02:47)
[2018-12-15] MEDS: PIPERACILLIN/TAZOBACTAM 3,375 MG in SODIUM CHLORIDE 0.9% 100 ML IV SCH ×3 (03:20→20:22)
[2018-12-15 04:56] LABS: Allen Test Positive; Pt O2 Delivery Device Ventilator
[2018-12-15 05:00] LABS: ABG Base Excess 15.6 MMOL/L (-2.5-2.5); ABG HCO3 39.5 MMOL/L (20-26); ABG Oxygen Saturation 99.7 % (95-100); ABG PCO2 33.6 MM HG (35-48); ABG TCO2 35.2 MMOL/L (23-27)
[2018-12-15] MEDS: INSULIN LISPRO 100 UNIT/ML SUBCUT SCH ×4 (05:00→18:45)
[2018-12-15 05:02] LABS: ABG PH 7.659 (7.35-7.45)
[2018-12-15 05:24] LABS: Basophils # 0.1 10*3/uL (0.0-0.2); Basophils % 0.4 % (0.0-0.8); Eosinophils # 0.1 10*3/uL (0.0-0.87); Eosinophils % 0.7 % (0.00-10.9); Hematocrit 29.1 VOL% (35.7-47.0); Hemoglobin 8.8 GM/DL (12.0-16.0); Immature Granulocytes % 2.3 %; Immature Granulocytes Absolute 0.32 #; Lymphocytes # 1.1 10*3/uL (1.4-4.0); Lymphocytes % 7.9 % (21.3-54.2); Mean Corpuscular HGB Conc 30.2 GM/DL (32-36); Mean Corpuscular Volume 100.3 FL (87-102); Mean Platelet Volume 12.8 FL (9.6-12.0); NRBC # 0.05 10*3/uL; Neutrophils % 79.7 % (38.7-73.9); Platelet Count 257 T/CUMM (130-400); Red Cell Distribution Width 15.7 % (9.3-17.3); White Blood Count 13.8 T/CUMM (4-12)
[2018-12-15 05:41] LABS: Calcium 8.9 MG/DL (8.5-10.1); Osmolality,Calculated 300.5 MOS/KG (273-304); Thyroid Stimulating Hormone 2.9 uIU/ml (0.358-3.74)
[2018-12-15 06:00] LABS: Anisocytosis Slight; Lymphocytes 6 % (20-55); Myelocytes 1 %; Segmented Neutrophils 79 % (50-85); Total Cells Counted 100
[2018-12-15 06:01] LABS: Macrocytosis Slight; Polychromasia Slight
[2018-12-15 06:02] LABS: Platelet Estimate Normal; Stomatocytes Slight
[2018-12-15] MEDS: MIDAZOLAM 100 MG in SODIUM CHLORIDE 0.9% 80 ML IV PRN (07:26)
[2018-12-15] MEDS: LEVOTHYROXINE 150 MCG TABLET PO SCH (07:45)
[2018-12-15] MEDS: FUROSEMIDE 40 MG/4 ML VIAL IV SCH ×2 (07:49→17:00)
[2018-12-15] MEDS: PANTOPRAZOLE 40 MG VIAL IV SCH (09:20)
[2018-12-15] MEDS: ENOXAPARIN 40 MG/0.4 ML SYRINGE SUBCUT SCH (09:25)
[2018-12-15] MEDS: ASPIRIN 325 MG TABLET PO SCH (09:25)
[2018-12-15] MEDS ORDERED: AMIODARONE INJ 150 MG in DEXTROSE 5% 100 ML IV ONE (11:37)
[2018-12-15] MEDS ORDERED: DIGOXIN 0.5 MG/2 ML AMP IV ONE ×2 (11:37→16:38)
[2018-12-15] MEDS: POTASSIUM CHLORIDE 20 MEQ/15 ML UDCUP PER TUBE SCH ×3 (12:28→20:22)
[2018-12-15] MEDS: AMIODARONE INJ 450 MG in DEXTROSE 5% 241 ML IV SCH (12:37)
[2018-12-15] MEDS: PROPOFOL 1,000 MG/100 ML BOTTLE IV SCH (22:28)
[2018-12-16] MEDS: INSULIN LISPRO 100 UNIT/ML SUBCUT SCH ×5 (00:12→23:16)
[2018-12-16] MEDS: PHENYLEPHRINE DRIP 40 MG/250 ML PREMIX IV PRN (01:47)
[2018-12-16] MEDS: AMIODARONE INJ 450 MG in DEXTROSE 5% 241 ML IV SCH (02:34)
[2018-12-16 03:37] LABS: ABG Base Excess 8.6 MMOL/L (-2.5-2.5); ABG HCO3 31.8 MMOL/L (20-26); ABG Oxygen Saturation 97.9 % (95-100); ABG PO2 110.9 MM HG (80-95); ABG TCO2 32.9 MMOL/L (23-27); Allen Test Positive; Pt O2 Delivery Device Ventilator
[2018-12-16] MEDS: MIDAZOLAM 100 MG in SODIUM CHLORIDE 0.9% 80 ML IV PRN (04:00)
[2018-12-16] MEDS: PIPERACILLIN/TAZOBACTAM 3,375 MG in SODIUM CHLORIDE 0.9% 100 ML IV SCH ×3 (04:00→20:09)
[2018-12-16 04:34] LABS: Albumin 1.9 G/DL (3.4-5.0); Bilirubin,Total 1.7 MG/DL (0.2-1.0); Calcium 8.4 MG/DL (8.5-10.1); Osmolality,Calculated 307.5 MOS/KG (273-304)
[2018-12-16 05:06] LABS: Prealbumin 10.9 MG/DL (20-40)
[2018-12-16] MEDS: LEVOTHYROXINE 150 MCG TABLET PO SCH (05:36)
[2018-12-16] MEDS: FUROSEMIDE 40 MG/4 ML VIAL IV SCH ×2 (09:05→15:15)
[2018-12-16] MEDS: AMIODARONE 200 MG TABLET PO SCH ×2 (09:16→20:09)
[2018-12-16] MEDS: ASPIRIN 325 MG TABLET PO SCH (09:16)
[2018-12-16] MEDS: PANTOPRAZOLE 40 MG VIAL IV SCH (09:16)
[2018-12-16] MEDS: ENOXAPARIN 40 MG/0.4 ML SYRINGE SUBCUT SCH (09:16)
[2018-12-16] MEDS: INSULIN GLARGINE 100 UNIT/ML SUBCUT SCH (11:10)
[2018-12-16] MEDS: PROPOFOL 1,000 MG/100 ML BOTTLE IV SCH (15:47)
[2018-12-16] MEDS: ATORVASTATIN 40 MG TABLET PO SCH (20:09)
[2018-12-17 03:25] LABS: ABG Base Excess 9.1 MMOL/L (-2.5-2.5); ABG HCO3 32.9 MMOL/L (20-26); ABG Oxygen Saturation 99.8 % (95-100); ABG PCO2 40.6 MM HG (35-48); ABG PH 7.517 (7.35-7.45); ABG TCO2 30.1 MMOL/L (23-27); Allen Test Positive; Pt O2 Delivery Device Ventilator
[2018-12-17] MEDS: PIPERACILLIN/TAZOBACTAM 3,375 MG in SODIUM CHLORIDE 0.9% 100 ML IV SCH ×3 (03:49→21:28)
[2018-12-17 03:53] LABS: Basophils # 0.1 10*3/uL (0.0-0.2); Basophils % 0.4 % (0.0-0.8); Eosinophils # 0.2 10*3/uL (0.0-0.87); Eosinophils % 2.1 % (0.00-10.9); Hematocrit 29.9 VOL% (35.7-47.0); Immature Granulocytes % 1.5 %; Immature Granulocytes Absolute 0.17 #; Lymphocytes % 8.5 % (21.3-54.2); Mean Corpuscular HGB Conc 30.1 GM/DL (32-36); Mean Corpuscular Volume 99.3 FL (87-102); Mean Platelet Volume 11.4 FL (9.6-12.0); Monocytes % 3.5 % (1.7-12.7); Platelet Count 178 T/CUMM (130-400); Red Blood Count 3.01 MC/CUMM (3.8-5.5); Red Cell Distribution Width 16.5 % (9.3-17.3); White Blood Count 11.4 T/CUMM (4-12)
[2018-12-17 04:09] LABS: Calcium 8.2 MG/DL (8.5-10.1); Osmolality,Calculated 310.4 MOS/KG (273-304)
[2018-12-17] MEDS: INSULIN LISPRO 100 UNIT/ML SUBCUT SCH ×3 (05:52→17:27)
[2018-12-17] MEDS: LEVOTHYROXINE 150 MCG TABLET PO SCH (05:52)
[2018-12-17] MEDS: PANTOPRAZOLE 40 MG VIAL IV SCH (08:17)
[2018-12-17] MEDS: LEVOFLOXACIN INJ 500 MG in PREMIX 1 EACH IV SCH (08:17)
[2018-12-17] MEDS: AMIODARONE 200 MG TABLET PO SCH ×2 (08:17→21:32)
[2018-12-17] MEDS: ASPIRIN 325 MG TABLET PO SCH (08:17)
[2018-12-17] MEDS: ENOXAPARIN 40 MG/0.4 ML SYRINGE SUBCUT SCH (08:17)
[2018-12-17] MEDS: INSULIN GLARGINE 100 UNIT/ML SUBCUT SCH (08:17)
[2018-12-17] MEDS: FUROSEMIDE 40 MG/4 ML VIAL IV SCH (08:21)
[2018-12-17] MEDS: POTASSIUM CHLORIDE 20 MEQ/15 ML UDCUP PER TUBE SCH ×3 (09:39→17:27)
[2018-12-17] MEDS ORDERED: DIGOXIN 0.5 MG/2 ML AMP IV ONE (10:40)
[2018-12-17] MEDS: PROPOFOL 1,000 MG/100 ML BOTTLE IV SCH (13:47)
[2018-12-17] MEDS: DIGOXIN 0.25 MG TABLET PER TUBE SCH (15:10)
[2018-12-17] MEDS: ATORVASTATIN 40 MG TABLET PO SCH (21:32)
[2018-12-18] MEDS: INSULIN LISPRO 100 UNIT/ML SUBCUT SCH ×5 (00:17→21:33)
[2018-12-18 03:48] LABS: ABG Base Excess 8.1 MMOL/L (-2.5-2.5); ABG HCO3 31.6 MMOL/L (20-26); ABG Oxygen Saturation 97.6 % (95-100); ABG PCO2 39.6 MM HG (35-48); ABG PO2 100.8 MM HG (80-95); ABG TCO2 32.8 MMOL/L (23-27); Allen Test Positive; Pt O2 Delivery Device Ventilator
[2018-12-18] MEDS: PIPERACILLIN/TAZOBACTAM 3,375 MG in SODIUM CHLORIDE 0.9% 100 ML IV SCH ×3 (06:21→21:34)
[2018-12-18] MEDS: LEVOTHYROXINE 150 MCG TABLET PO SCH (06:23)
[2018-12-18 06:25] LABS: Calcium 8.3 MG/DL (8.5-10.1); Osmolality,Calculated 310.7 MOS/KG (273-304)
[2018-12-18] MEDS: ASPIRIN 325 MG TABLET PO SCH (08:36)
[2018-12-18] MEDS: INSULIN GLARGINE 100 UNIT/ML SUBCUT SCH (08:36)
[2018-12-18] MEDS: DIGOXIN 0.25 MG TABLET PER TUBE SCH (08:36)
[2018-12-18] MEDS: PANTOPRAZOLE 40 MG VIAL IV SCH (08:36)
[2018-12-18] MEDS: ENOXAPARIN 40 MG/0.4 ML SYRINGE SUBCUT SCH (08:36)
[2018-12-18] MEDS: FUROSEMIDE 40 MG/4 ML VIAL IV SCH (08:39)
[2018-12-18] MEDS: AMIODARONE 200 MG TABLET PO SCH ×2 (08:43→21:34)
[2018-12-18] MEDS: methylPREDNISolone SOD SUC 40 MG/1 ML VIAL IV SCH ×2 (09:52→21:43)
[2018-12-18] MEDS: NYSTATIN 500,000 UNIT/5 ML UDCUP SWISH/SWAL SCH ×2 (13:26→21:35)
[2018-12-18] MEDS: PROPOFOL 1,000 MG/100 ML BOTTLE IV SCH (13:31)
[2018-12-18] MEDS: NIFEdipine 10 MG CAPSULE PO PRN ×2 (13:48→21:34)
[2018-12-18] MEDS: ATORVASTATIN 40 MG TABLET PO SCH (21:34)
[2018-12-19] MEDS: INSULIN LISPRO 100 UNIT/ML SUBCUT SCH ×6 (00:15→21:14)
[2018-12-19 04:27] LABS: ABG Base Excess 7.6 MMOL/L (-2.5-2.5); ABG HCO3 30.6 MMOL/L (20-26); ABG Oxygen Saturation 97.8 % (95-100); ABG PCO2 36.7 MM HG (35-48); ABG PH 7.539 (7.35-7.45); ABG PO2 103.1 MM HG (80-95); ABG TCO2 31.7 MMOL/L (23-27); Allen Test Positive; Pt O2 Delivery Device Ventilator
[2018-12-19 04:52] LABS: Calcium 8.9 MG/DL (8.5-10.1); Osmolality,Calculated 317.4 MOS/KG (273-304)
[2018-12-19] MEDS: PIPERACILLIN/TAZOBACTAM 3,375 MG in SODIUM CHLORIDE 0.9% 100 ML IV SCH ×3 (05:26→21:12)
[2018-12-19] MEDS: NIFEdipine 10 MG CAPSULE PO PRN (05:27)
[2018-12-19] MEDS: NYSTATIN 500,000 UNIT/5 ML UDCUP SWISH/SWAL SCH ×3 (06:04→21:16)
[2018-12-19] MEDS: LEVOTHYROXINE 150 MCG TABLET PO SCH (06:04)
[2018-12-19] MEDS: MIDAZOLAM 100 MG in SODIUM CHLORIDE 0.9% 80 ML IV PRN (08:18)
[2018-12-19] MEDS: methylPREDNISolone SOD SUC 40 MG/1 ML VIAL IV SCH ×2 (09:48→21:13)
[2018-12-19] MEDS: ASPIRIN 325 MG TABLET PO SCH (09:48)
[2018-12-19] MEDS: glipiZIDE 10 MG TABLET PO SCH ×2 (09:48→21:15)
[2018-12-19] MEDS: PANTOPRAZOLE 40 MG VIAL IV SCH (09:48)
[2018-12-19] MEDS: INSULIN GLARGINE 100 UNIT/ML SUBCUT SCH (09:48)
[2018-12-19] MEDS: DIGOXIN 0.25 MG TABLET PER TUBE SCH (09:48)
[2018-12-19] MEDS: ENOXAPARIN 40 MG/0.4 ML SYRINGE SUBCUT SCH (09:48)
[2018-12-19] MEDS: FUROSEMIDE 40 MG/4 ML VIAL IV SCH (09:48)
[2018-12-19] MEDS: AMIODARONE 200 MG TABLET PO SCH ×2 (09:48→21:16)
[2018-12-19] MEDS: LEVOFLOXACIN INJ 500 MG in PREMIX 1 EACH IV SCH (09:56)
[2018-12-19] MEDS: PROPOFOL 1,000 MG/100 ML BOTTLE IV SCH (14:43)
[2018-12-19] MEDS: ATORVASTATIN 40 MG TABLET PO SCH (21:14)
[2018-12-20] MEDS: INSULIN LISPRO 100 UNIT/ML SUBCUT SCH ×6 (00:13→20:59)
[2018-12-20] MEDS: AMIODARONE 200 MG TABLET PO SCH ×3 (00:14→20:58)
[2018-12-20 04:24] LABS: ABG Base Excess 6.2 MMOL/L (-2.5-2.5); ABG HCO3 30.1 MMOL/L (20-26); ABG Oxygen Saturation 99.9 % (95-100); ABG PCO2 35.9 MM HG (35-48); ABG PH 7.521 (7.35-7.45); ABG TCO2 27.1 MMOL/L (23-27); Allen Test Positive; Pt O2 Delivery Device Ventilator
[2018-12-20] MEDS: PIPERACILLIN/TAZOBACTAM 3,375 MG in SODIUM CHLORIDE 0.9% 100 ML IV SCH ×3 (04:38→20:58)
[2018-12-20 05:34] LABS: Calcium 9.3 MG/DL (8.5-10.1); Osmolality,Calculated 320.1 MOS/KG (273-304)
[2018-12-20] MEDS: NYSTATIN 500,000 UNIT/5 ML UDCUP SWISH/SWAL SCH ×4 (05:40→22:11)
[2018-12-20] MEDS: LEVOTHYROXINE 150 MCG TABLET PO SCH (05:40)
[2018-12-20] MEDS: ASPIRIN 325 MG TABLET PO SCH (08:28)
[2018-12-20] MEDS: FUROSEMIDE 40 MG/4 ML VIAL IV SCH (08:29)
[2018-12-20] MEDS: DIGOXIN 0.25 MG TABLET PER TUBE SCH (08:29)
[2018-12-20] MEDS: INSULIN GLARGINE 100 UNIT/ML SUBCUT SCH (08:29)
[2018-12-20] MEDS: glipiZIDE 10 MG TABLET PO SCH ×2 (08:29→20:58)
[2018-12-20] MEDS: methylPREDNISolone SOD SUC 40 MG/1 ML VIAL IV SCH ×2 (08:30→20:59)
[2018-12-20] MEDS: ENOXAPARIN 40 MG/0.4 ML SYRINGE SUBCUT SCH (08:30)
[2018-12-20] MEDS: NIFEdipine 10 MG CAPSULE PO PRN (08:30)
[2018-12-20] MEDS: PANTOPRAZOLE 40 MG VIAL IV SCH (08:30)
[2018-12-20] MEDS: PROPOFOL 1,000 MG/100 ML BOTTLE IV SCH (13:59)
[2018-12-20] MEDS: ATORVASTATIN 40 MG TABLET PO SCH (20:58)
[2018-12-21] MEDS: INSULIN LISPRO 100 UNIT/ML SUBCUT SCH ×6 (00:15→19:36)
[2018-12-21 03:15] LABS: ABG Base Excess 5.7 MMOL/L (-2.5-2.5); ABG HCO3 29.6 MMOL/L (20-26); ABG Oxygen Saturation 98.4 % (95-100); ABG PCO2 35.7 MM HG (35-48); ABG PH 7.517 (7.35-7.45); ABG TCO2 27.1 MMOL/L (23-27); Allen Test Positive; Pt O2 Delivery Device Ventilator
[2018-12-21] MEDS: PIPERACILLIN/TAZOBACTAM 3,375 MG in SODIUM CHLORIDE 0.9% 100 ML IV SCH ×3 (04:05→19:41)
[2018-12-21 04:45] LABS: Calcium 8.8 MG/DL (8.5-10.1); Osmolality,Calculated 326.7 MOS/KG (273-304)
[2018-12-21] MEDS: NIFEdipine 10 MG CAPSULE PO PRN ×2 (05:11→16:32)
[2018-12-21] MEDS: NYSTATIN 500,000 UNIT/5 ML UDCUP SWISH/SWAL SCH ×3 (07:11→21:05)
[2018-12-21] MEDS: LEVOTHYROXINE 150 MCG TABLET PO SCH (07:22)
[2018-12-21] MEDS: AMIODARONE 200 MG TABLET PO SCH (08:12)
[2018-12-21] MEDS: ASPIRIN 325 MG TABLET PO SCH (08:12)
[2018-12-21] MEDS: glipiZIDE 10 MG TABLET PO SCH ×2 (08:12→20:23)
[2018-12-21] MEDS: LEVOFLOXACIN INJ 500 MG in PREMIX 1 EACH IV SCH (08:13)
[2018-12-21] MEDS: INSULIN GLARGINE 100 UNIT/ML SUBCUT SCH (08:13)
[2018-12-21] MEDS: FUROSEMIDE 40 MG/4 ML VIAL IV SCH (08:13)
[2018-12-21] MEDS: DIGOXIN 0.25 MG TABLET PER TUBE SCH (08:13)
[2018-12-21] MEDS: ENOXAPARIN 40 MG/0.4 ML SYRINGE SUBCUT SCH (08:14)
[2018-12-21] MEDS: PANTOPRAZOLE 40 MG VIAL IV SCH (08:15)
[2018-12-21] MEDS: methylPREDNISolone SOD SUC 40 MG/1 ML VIAL IV SCH ×2 (08:32→12:32)
[2018-12-21] MEDS: MIDAZOLAM 100 MG in SODIUM CHLORIDE 0.9% 80 ML IV PRN (09:19)
[2018-12-21] MEDS: PROPOFOL 1,000 MG/100 ML BOTTLE IV SCH (14:12)
[2018-12-21] MEDS ORDERED: DEXTROSE 50% 25 GM/50 ML SYRINGE IV PRN (14:38)
[2018-12-21] MEDS: ATORVASTATIN 40 MG TABLET PO SCH (20:23)
[2018-12-21] MEDS ORDERED: AMIODARONE 200 MG TABLET PO SCH (21:00)
[2018-12-21] MEDS: DEXMEDETOMIDINE 200 MCG in SODIUM CHLORIDE 0.9% 48 ML IV PRN (21:57)
[2018-12-22] MEDS: INSULIN LISPRO 100 UNIT/ML SUBCUT SCH ×7 (00:56→23:11)
[2018-12-22] MEDS: methylPREDNISolone SOD SUC 40 MG/1 ML VIAL IV SCH ×2 (00:56→11:43)
[2018-12-22 03:28] LABS: ABG Base Excess 4.9 MMOL/L (-2.5-2.5); ABG HCO3 28.9 MMOL/L (20-26); ABG Oxygen Saturation 98.2 % (95-100); ABG PCO2 34.6 MM HG (35-48); ABG PH 7.512 (7.35-7.45); ABG PO2 98.7 MM HG (80-95); ABG TCO2 24.4 MMOL/L (23-27); Allen Test Positive; Pt O2 Delivery Device Ventilator
[2018-12-22] MEDS: LEVOTHYROXINE 150 MCG TABLET PO SCH (05:16)
[2018-12-22 05:53] LABS: Basophils % 0.1 % (0.0-0.8); Hematocrit 28.1 VOL% (35.7-47.0); Hemoglobin 8.6 GM/DL (12.0-16.0); Immature Granulocytes % 1.3 %; Immature Granulocytes Absolute 0.18 #; Lymphocytes # 0.7 10*3/uL (1.4-4.0); Lymphocytes % 5.1 % (21.3-54.2); Mean Corpuscular HGB Conc 30.6 GM/DL (32-36); Mean Corpuscular Volume 97.6 FL (87-102); Mean Platelet Volume 12.4 FL (9.6-12.0); Neutrophils % 87.5 % (38.7-73.9); Platelet Count 157 T/CUMM (130-400); Red Blood Count 2.88 MC/CUMM (3.8-5.5); Red Cell Distribution Width 15.9 % (9.3-17.3); White Blood Count 13.4 T/CUMM (4-12)
[2018-12-22 06:00] LABS: Osmolality,Calculated 337.3 MOS/KG (273-304)
[2018-12-22] MEDS: NYSTATIN 500,000 UNIT/5 ML UDCUP SWISH/SWAL SCH ×3 (06:06→22:15)
[2018-12-22] MEDS: DEXMEDETOMIDINE 200 MCG in SODIUM CHLORIDE 0.9% 48 ML IV PRN ×2 (06:07→19:50)
[2018-12-22 06:10] LABS: Prealbumin 31.5 MG/DL (20-40)
[2018-12-22] MEDS: PANTOPRAZOLE 40 MG VIAL IV SCH (08:57)
[2018-12-22] MEDS: FUROSEMIDE 40 MG/4 ML VIAL IV SCH (09:04)
[2018-12-22] MEDS: ENOXAPARIN 40 MG/0.4 ML SYRINGE SUBCUT SCH (09:08)
[2018-12-22] MEDS: ASPIRIN 325 MG TABLET PO SCH (09:09)
[2018-12-22] MEDS: glipiZIDE 10 MG TABLET PO SCH ×2 (09:09→20:34)
[2018-12-22] MEDS: INSULIN GLARGINE 100 UNIT/ML SUBCUT SCH (09:10)
[2018-12-22] MEDS: POTASSIUM CHLORIDE 20 MEQ/15 ML UDCUP PER TUBE PRN ×3 (11:49→16:52)
[2018-12-22] MEDS: PROPOFOL 1,000 MG/100 ML BOTTLE IV SCH (13:53)
[2018-12-22] MEDS: FUROSEMIDE 20 MG/2 ML VIAL IV SCH (15:28)
[2018-12-22] MEDS: ATORVASTATIN 40 MG TABLET PO SCH (20:35)
[2018-12-23] MEDS: methylPREDNISolone SOD SUC 40 MG/1 ML VIAL IV SCH ×2 (01:09→11:49)
[2018-12-23 04:08] LABS: ABG Base Excess 3.5 MMOL/L (-2.5-2.5); ABG HCO3 27.6 MMOL/L (20-26); ABG Oxygen Saturation 99.8 % (95-100); ABG PCO2 44.5 MM HG (35-48); ABG PH 7.415 (7.35-7.45); ABG TCO2 26.3 MMOL/L (23-27); Allen Test Positive; Pt O2 Delivery Device Ventilator
[2018-12-23] MEDS: INSULIN LISPRO 100 UNIT/ML SUBCUT SCH ×5 (04:11→21:14)
[2018-12-23 04:54] LABS: Calcium 9.2 MG/DL (8.5-10.1); Osmolality,Calculated 337.4 MOS/KG (273-304)
[2018-12-23] MEDS: NYSTATIN 500,000 UNIT/5 ML UDCUP SWISH/SWAL SCH ×3 (06:04→21:13)
[2018-12-23] MEDS: LEVOTHYROXINE 150 MCG TABLET PO SCH (06:04)
[2018-12-23] MEDS: DEXMEDETOMIDINE 200 MCG in SODIUM CHLORIDE 0.9% 48 ML IV PRN (07:46)
[2018-12-23] MEDS: ENOXAPARIN 40 MG/0.4 ML SYRINGE SUBCUT SCH (08:47)
[2018-12-23] MEDS: ASPIRIN 325 MG TABLET PO SCH (08:53)
[2018-12-23] MEDS: glipiZIDE 10 MG TABLET PO SCH ×2 (08:53→21:14)
[2018-12-23] MEDS: FUROSEMIDE 20 MG/2 ML VIAL IV SCH ×2 (08:54→17:14)
[2018-12-23] MEDS: PANTOPRAZOLE 40 MG VIAL IV SCH (09:02)
[2018-12-23] MEDS: INSULIN GLARGINE 100 UNIT/ML SUBCUT SCH ×2 (09:08→21:15)
[2018-12-23] MEDS: LEVOFLOXACIN INJ 500 MG in PREMIX 1 EACH IV SCH (09:19)
[2018-12-23] MEDS ORDERED: ONDANSETRON 4 MG/2 ML VIAL ONE (10:10)
[2018-12-23] MEDS: ONDANSETRON 4 MG/2 ML VIAL IV PRN (10:23)
[2018-12-23] MEDS: NIFEdipine 10 MG CAPSULE PO PRN (15:06)
[2018-12-23] MEDS: ATORVASTATIN 40 MG TABLET PO SCH (21:14)
[2018-12-24] MEDS: INSULIN LISPRO 100 UNIT/ML SUBCUT SCH ×6 (00:42→22:40)
[2018-12-24] MEDS: methylPREDNISolone SOD SUC 40 MG/1 ML VIAL IV SCH ×2 (00:44→12:38)
[2018-12-24] MEDS: NIFEdipine 10 MG CAPSULE PO PRN (03:16)
[2018-12-24] MEDS: NYSTATIN 500,000 UNIT/5 ML UDCUP SWISH/SWAL SCH ×3 (05:41→22:53)
[2018-12-24] MEDS: LEVOTHYROXINE 150 MCG TABLET PO SCH (05:41)
[2018-12-24 05:46] LABS: Albumin 2.8 G/DL (3.4-5.0); Bilirubin,Total 0.5 MG/DL (0.2-1.0); Calcium 9.4 MG/DL (8.5-10.1); Osmolality,Calculated 331.6 MOS/KG (273-304); Total Protein 7.8 G/DL (6.4-8.3)
[2018-12-24] MEDS: PANTOPRAZOLE 40 MG VIAL IV SCH (09:01)
[2018-12-24] MEDS: FUROSEMIDE 20 MG/2 ML VIAL IV SCH ×2 (09:01→16:41)
[2018-12-24] MEDS: ASPIRIN 325 MG TABLET PO SCH (09:02)
[2018-12-24] MEDS: INSULIN GLARGINE 100 UNIT/ML SUBCUT SCH ×2 (09:02→22:52)
[2018-12-24] MEDS: glipiZIDE 10 MG TABLET PO SCH ×2 (09:02→22:52)
[2018-12-24] MEDS: ENOXAPARIN 40 MG/0.4 ML SYRINGE SUBCUT SCH (09:02)
[2018-12-24] MEDS ORDERED: traMADol 50 MG TABLET PO PRN (11:04)
[2018-12-24] MEDS: METOPROLOL SUCCINATE XL 50 MG TABLET PO SCH ×2 (12:39→22:52)
[2018-12-24] MEDS: ATORVASTATIN 40 MG TABLET PO SCH (22:52)
[2018-12-25] MEDS: INSULIN LISPRO 100 UNIT/ML SUBCUT SCH ×6 (00:16→21:07)
[2018-12-25 06:11] LABS: Calcium 9.4 MG/DL (8.5-10.1); Osmolality,Calculated 334.9 MOS/KG (273-304); Prealbumin 46.1 MG/DL (20-40)
[2018-12-25] MEDS: LEVOTHYROXINE 150 MCG TABLET PO SCH (06:32)
[2018-12-25] MEDS: NYSTATIN 500,000 UNIT/5 ML UDCUP SWISH/SWAL SCH ×3 (06:32→21:56)
[2018-12-25] MEDS: FUROSEMIDE 20 MG/2 ML VIAL IV SCH ×2 (09:31→17:05)
[2018-12-25] MEDS: predniSONE 10 MG TABLET PO SCH (09:32)
[2018-12-25] MEDS: ENOXAPARIN 40 MG/0.4 ML SYRINGE SUBCUT SCH (09:32)
[2018-12-25] MEDS: glipiZIDE 10 MG TABLET PO SCH ×2 (09:32→21:07)
[2018-12-25] MEDS: METOPROLOL SUCCINATE XL 50 MG TABLET PO SCH ×2 (09:32→21:09)
[2018-12-25] MEDS: PANTOPRAZOLE 40 MG TABLET PO SCH (09:32)
[2018-12-25] MEDS: ASPIRIN 325 MG TABLET PO SCH (09:32)
[2018-12-25] MEDS: INSULIN GLARGINE 100 UNIT/ML SUBCUT SCH ×2 (09:55→21:08)
[2018-12-25] MEDS: ATORVASTATIN 40 MG TABLET PO SCH (21:06)
[2018-12-26] MEDS: INSULIN LISPRO 100 UNIT/ML SUBCUT SCH ×7 (00:46→23:47)
[2018-12-26 05:36] LABS: Basophils % 0.2 % (0.0-0.8); Eosinophils # 0.3 10*3/uL (0.0-0.87); Eosinophils % 1.8 % (0.00-10.9); Hematocrit 32.3 VOL% (35.7-47.0); Hemoglobin 9.8 GM/DL (12.0-16.0); Immature Granulocytes % 0.9 %; Immature Granulocytes Absolute 0.16 #; Lymphocytes # 1.9 10*3/uL (1.4-4.0); Lymphocytes % 11.3 % (21.3-54.2); Mean Corpuscular HGB Conc 30.3 GM/DL (32-36); Mean Corpuscular Volume 98.8 FL (87-102); Mean Platelet Volume 11.8 FL (9.6-12.0); Neutrophils % 76.8 % (38.7-73.9); Platelet Count 224 T/CUMM (130-400); Red Blood Count 3.27 MC/CUMM (3.8-5.5); Red Cell Distribution Width 16.3 % (9.3-17.3); White Blood Count 17.1 T/CUMM (4-12)
[2018-12-26 06:00] LABS: Apearance,Urine CLOUDY (Clear); Bilirubin,Urine Negative (Negative); Blood, Urine Moderate mg/dL (Negative); Glucose,Urine (UA) Negative (Negative); Ketones,Urine Negative (Negative); Nitrite,Urine Negative (Negative); Protein,Urine 100 MG/DL; RBC,Urine 98 /HPF (0-4); Squamous Epithelial Cell,Urine Occasional /HPF (0-10); Urine Color Yellow (Yellow); Urine Specific Gravity 1.016 (1.001-1.035); Urine Urobilinogen < 2.0 EU/DL (0.2-1.0); WBC,Urine 21 /HPF (0-6)
[2018-12-26 06:03] LABS: Calcium 9.1 MG/DL (8.5-10.1); Osmolality,Calculated 333.1 MOS/KG (273-304)
[2018-12-26] MEDS: NYSTATIN 500,000 UNIT/5 ML UDCUP SWISH/SWAL SCH (06:03)
[2018-12-26] MEDS: LEVOTHYROXINE 150 MCG TABLET PO SCH (06:03)
[2018-12-26] MEDS: INSULIN GLARGINE 100 UNIT/ML SUBCUT SCH ×2 (09:45→20:32)
[2018-12-26] MEDS: ENOXAPARIN 40 MG/0.4 ML SYRINGE SUBCUT SCH (09:45)
[2018-12-26] MEDS: METOPROLOL SUCCINATE XL 50 MG TABLET PO SCH ×2 (09:46→20:32)
[2018-12-26] MEDS: glipiZIDE 10 MG TABLET PO SCH ×2 (09:46→20:32)
[2018-12-26] MEDS: PANTOPRAZOLE 40 MG TABLET PO SCH (09:46)
[2018-12-26] MEDS: ASPIRIN 325 MG TABLET PO SCH (09:46)
[2018-12-26] MEDS: predniSONE 10 MG TABLET PO SCH (09:46)
[2018-12-26] MEDS: LANSOPRAZOLE ODT 30 MG TABLET PO SCH (10:05)
[2018-12-26] MEDS: DEXTROSE 5% 1,000 ML IV SCH (14:12)
[2018-12-26] MEDS: MEROPENEM 500 MG in SODIUM CHLORIDE 0.9% 100 ML IV SCH (14:14)
[2018-12-26] MEDS: ATORVASTATIN 40 MG TABLET PO SCH (20:32)
[2018-12-27] MEDS: MEROPENEM 500 MG in SODIUM CHLORIDE 0.9% 100 ML IV SCH ×2 (02:23→13:09)
[2018-12-27] MEDS: INSULIN LISPRO 100 UNIT/ML SUBCUT SCH ×6 (04:30→22:31)
[2018-12-27] MEDS: DEXTROSE 5% 1,000 ML IV SCH (04:34)
[2018-12-27] MEDS: LEVOTHYROXINE 150 MCG TABLET PO SCH (05:55)
[2018-12-27 06:47] LABS: Basophils % 0.1 % (0.0-0.8); Eosinophils # 0.3 10*3/uL (0.0-0.87); Eosinophils % 2.1 % (0.00-10.9); Hematocrit 29.2 VOL% (35.7-47.0); Hemoglobin 9.2 GM/DL (12.0-16.0); Immature Granulocytes % 0.8 %; Immature Granulocytes Absolute 0.12 #; Lymphocytes # 1.6 10*3/uL (1.4-4.0); Mean Corpuscular HGB Conc 31.5 GM/DL (32-36); Mean Corpuscular Volume 94.8 FL (87-102); Mean Platelet Volume 12.1 FL (9.6-12.0); Monocytes % 9.1 % (1.7-12.7); Neutrophils % 76.9 % (38.7-73.9); Platelet Count 166 T/CUMM (130-400); Red Blood Count 3.08 MC/CUMM (3.8-5.5); Red Cell Distribution Width 16.7 % (9.3-17.3); White Blood Count 14.2 T/CUMM (4-12)
[2018-12-27 07:26] LABS: Calcium 8.3 MG/DL (8.5-10.1); Osmolality,Calculated 310.7 MOS/KG (273-304)
[2018-12-27] MEDS: ENOXAPARIN 40 MG/0.4 ML SYRINGE SUBCUT SCH (08:46)
[2018-12-27] MEDS: INSULIN GLARGINE 100 UNIT/ML SUBCUT SCH ×3 (08:46→22:30)
[2018-12-27] MEDS: glipiZIDE 10 MG TABLET PO SCH ×2 (08:47→22:32)
[2018-12-27] MEDS: METOPROLOL SUCCINATE XL 50 MG TABLET PO SCH ×2 (08:47→22:33)
[2018-12-27] MEDS: predniSONE 10 MG TABLET PO SCH (08:47)
[2018-12-27] MEDS: ASPIRIN EC 81 MG TABLET PO SCH (08:47)
[2018-12-27] MEDS: LANSOPRAZOLE ODT 30 MG TABLET PO SCH (08:47)
[2018-12-27] MEDS: SODIUM CHLORIDE 0.45% 1,000 ML IV SCH (13:10)
[2018-12-27] MEDS: ATORVASTATIN 40 MG TABLET PO SCH (22:33)
[2018-12-28] MEDS: INSULIN LISPRO 100 UNIT/ML SUBCUT SCH ×8 (01:01→18:27)
[2018-12-28] MEDS: SODIUM CHLORIDE 0.45% 1,000 ML IV SCH ×2 (01:53→17:16)
[2018-12-28] MEDS: MEROPENEM 500 MG in SODIUM CHLORIDE 0.9% 100 ML IV SCH ×2 (01:57→14:06)
[2018-12-28 03:11] LABS: Basophils % 0.1 % (0.0-0.8); Eosinophils # 0.4 10*3/uL (0.0-0.87); Eosinophils % 4.4 % (0.00-10.9); Hematocrit 27.7 VOL% (35.7-47.0); Hemoglobin 8.6 GM/DL (12.0-16.0); Immature Granulocytes % 1.2 %; Immature Granulocytes Absolute 0.12 #; Lymphocytes # 1.5 10*3/uL (1.4-4.0); Lymphocytes % 14.6 % (21.3-54.2); Mean Corpuscular Volume 95.2 FL (87-102); Mean Platelet Volume 12.4 FL (9.6-12.0); Monocytes % 10.7 % (1.7-12.7); Platelet Count 151 T/CUMM (130-400); Red Blood Count 2.91 MC/CUMM (3.8-5.5); Red Cell Distribution Width 16.3 % (9.3-17.3)
[2018-12-28 03:39] LABS: Albumin 2.1 G/DL (3.4-5.0); Bilirubin,Total 0.6 MG/DL (0.2-1.0); Calcium 8.1 MG/DL (8.5-10.1); Osmolality,Calculated 304.3 MOS/KG (273-304); Total Protein 6.1 G/DL (6.4-8.3)
[2018-12-28] MEDS: LEVOTHYROXINE 150 MCG TABLET PO SCH (05:57)
[2018-12-28] MEDS: INSULIN GLARGINE 100 UNIT/ML SUBCUT SCH ×2 (08:30→20:12)
[2018-12-28] MEDS: ENOXAPARIN 40 MG/0.4 ML SYRINGE SUBCUT SCH (08:30)
[2018-12-28] MEDS: glipiZIDE 10 MG TABLET PO SCH ×2 (08:30→20:11)
[2018-12-28] MEDS: predniSONE 10 MG TABLET PO SCH (08:31)
[2018-12-28] MEDS: ASPIRIN EC 81 MG TABLET PO SCH (08:32)
[2018-12-28] MEDS: LANSOPRAZOLE ODT 30 MG TABLET PO SCH (08:32)
[2018-12-28] MEDS: METOPROLOL SUCCINATE XL 50 MG TABLET PO SCH ×2 (08:33→20:12)
[2018-12-28 12:21] LABS: Hepatitis B Core IgM Quant < 0.05 Index; Hepatitis B Surface Ag Quant < 0.10 Index; Hepatitis B Surface Ag Result Negative (Negative); Hepatitis C Virus Ab Quant 0.09 Index; Hepatitis C Virus Ab Result Negative (Negative)
[2018-12-28] MEDS: ATORVASTATIN 40 MG TABLET PO SCH (20:11)
[2018-12-29] MEDS: INSULIN LISPRO 100 UNIT/ML SUBCUT SCH ×9 (00:40→17:16)
[2018-12-29] MEDS: MEROPENEM 500 MG in SODIUM CHLORIDE 0.9% 100 ML IV SCH ×2 (02:47→13:27)
[2018-12-29 05:03] LABS: Basophils % 0.2 % (0.0-0.8); Eosinophils # 0.5 10*3/uL (0.0-0.87); Eosinophils % 3.9 % (0.00-10.9); Hematocrit 30.2 VOL% (35.7-47.0); Hemoglobin 9.5 GM/DL (12.0-16.0); Immature Granulocytes % 1.4 %; Immature Granulocytes Absolute 0.17 #; Lymphocytes # 1.6 10*3/uL (1.4-4.0); Lymphocytes % 12.8 % (21.3-54.2); Mean Corpuscular HGB Conc 31.5 GM/DL (32-36); Mean Corpuscular Volume 94.7 FL (87-102); Mean Platelet Volume 12.1 FL (9.6-12.0); Neutrophils % 70.7 % (38.7-73.9); Platelet Count 158 T/CUMM (130-400); Red Blood Count 3.19 MC/CUMM (3.8-5.5); Red Cell Distribution Width 16.4 % (9.3-17.3); White Blood Count 12.1 T/CUMM (4-12)
[2018-12-29 05:34] LABS: Calcium 8.3 MG/DL (8.5-10.1); Osmolality,Calculated 295.1 MOS/KG (273-304); Prealbumin 28.2 MG/DL (20-40)
[2018-12-29] MEDS: ENOXAPARIN 40 MG/0.4 ML SYRINGE SUBCUT SCH (08:05)
[2018-12-29] MEDS: SODIUM CHLORIDE 0.45% 1,000 ML IV SCH (08:05)
[2018-12-29] MEDS: METOPROLOL SUCCINATE XL 50 MG TABLET PO SCH ×2 (08:06→21:17)
[2018-12-29] MEDS: INSULIN GLARGINE 100 UNIT/ML SUBCUT SCH ×2 (08:06→21:17)
[2018-12-29] MEDS: predniSONE 10 MG TABLET PO SCH (08:06)
[2018-12-29] MEDS: ASPIRIN EC 81 MG TABLET PO SCH (08:06)
[2018-12-29] MEDS: glipiZIDE 10 MG TABLET PO SCH ×2 (08:06→21:17)
[2018-12-29] MEDS: LEVOTHYROXINE 150 MCG TABLET PO SCH (08:06)
[2018-12-29] MEDS: LANSOPRAZOLE ODT 30 MG TABLET PO SCH (08:07)
[2018-12-29 09:45] LABS: Albumin 2.1 G/DL (3.4-5.0); Bilirubin,Direct 0.22 MG/DL (0.0-0.20); Bilirubin,Indirect 0.4 MG/DL (0.0-1.0); Bilirubin,Total 0.6 MG/DL (0.2-1.0); Total Protein 6.2 G/DL (6.4-8.3)
[2018-12-29] MEDS: ATORVASTATIN 40 MG TABLET PO SCH (21:17)
[2018-12-30] MEDS: INSULIN LISPRO 100 UNIT/ML SUBCUT SCH ×6 (00:14→17:27)
[2018-12-30] MEDS: LEVOTHYROXINE 150 MCG TABLET PO SCH (07:02)
[2018-12-30] MEDS: ENOXAPARIN 40 MG/0.4 ML SYRINGE SUBCUT SCH (08:04)
[2018-12-30] MEDS: INSULIN GLARGINE 100 UNIT/ML SUBCUT SCH ×2 (08:05→20:43)
[2018-12-30] MEDS: ASPIRIN EC 81 MG TABLET PO SCH (08:05)
[2018-12-30] MEDS: DULoxetine 30 MG CAPSULE PO SCH (08:05)
[2018-12-30] MEDS: METOPROLOL SUCCINATE XL 50 MG TABLET PO SCH ×2 (08:05→20:43)
[2018-12-30] MEDS: glipiZIDE 10 MG TABLET PO SCH ×2 (08:05→20:43)
[2018-12-30] MEDS: LANSOPRAZOLE ODT 30 MG TABLET PO SCH (08:10)
[2018-12-30] MEDS ORDERED: TUBERCULIN SKIN TEST 0.1 ML SYRINGE INTRADERM ONE (14:48)
[2018-12-30] MEDS: ATORVASTATIN 40 MG TABLET PO SCH (20:43)
[2018-12-31] MEDS: INSULIN LISPRO 100 UNIT/ML SUBCUT SCH ×2 (00:45→06:12)
[2018-12-31] MEDS: ONDANSETRON 4 MG/2 ML VIAL IV PRN (01:56)
[2018-12-31] MEDS: LEVOTHYROXINE 150 MCG TABLET PO SCH (06:11)
[2018-12-31] MEDS: glipiZIDE 10 MG TABLET PO SCH (10:27)
[2018-12-31] MEDS: METOPROLOL SUCCINATE XL 50 MG TABLET PO SCH (10:27)
[2018-12-31] MEDS: DULoxetine 30 MG CAPSULE PO SCH (10:27)
[2018-12-31] MEDS: ASPIRIN EC 81 MG TABLET PO SCH (10:27)
[2018-12-31] MEDS: INSULIN GLARGINE 100 UNIT/ML SUBCUT SCH (10:28)
[2018-12-31] MEDS: LANSOPRAZOLE ODT 30 MG TABLET PO SCH (10:28)
[2018-12-31] MEDS: ENOXAPARIN 40 MG/0.4 ML SYRINGE SUBCUT SCH (10:28)
[2018-12-31 13:04] VITALS: BP 137/63
== END 2018-12-31 13:00 | DRG 870 ==
LOC: EDBD → EDUNIT# → SUATTDRO → N.ED 10:33 → SUATTDRO 13:03 → N.EDINP 13:03 → N.ICU 12-15 11:29 → N.5E 12-24 20:33
PROVIDERS: ADMIT Internal Medicine; ATTEND Internal Medicine

== ENCOUNTER 2019-01-03 20:22 | Inpatient (IN) ==
[2019-01-03] MEDS ORDERED: FUROSEMIDE 40 MG/4 ML VIAL IV STA (20:50)
[2019-01-03] MEDS ORDERED: ALBUTEROL/IPRATROPIUM 3 ML NEB RESP TX STA (20:50)
[2019-01-03 21:27] LABS: ABG Base Excess 4.6 MMOL/L (-2.5-2.5); ABG HCO3 31.2 MMOL/L (20-26); ABG Oxygen Saturation 94.1 % (95-100); ABG PCO2 57.7 MM HG (35-48); ABG PH 7.351 (7.35-7.45); ABG PO2 77.4 MM HG (80-95); Allen Test Positive
[2019-01-03 21:47] LABS: Basophils # 0.1 10*3/uL (0.0-0.2); Basophils % 0.6 % (0.0-0.8); Eosinophils # 0.4 10*3/uL (0.0-0.87); Eosinophils % 4.3 % (0.00-10.9); Hematocrit 30.1 VOL% (35.7-47.0); Immature Granulocytes % 1.3 %; Immature Granulocytes Absolute 0.11 #; Lymphocytes # 1.6 10*3/uL (1.4-4.0); Lymphocytes % 18.2 % (21.3-54.2); Mean Corpuscular HGB Conc 29.9 GM/DL (32-36); Mean Corpuscular Volume 97.4 FL (87-102); Mean Platelet Volume 11.7 FL (9.6-12.0); Monocytes % 11.3 % (1.7-12.7); Neutrophils % 64.3 % (38.7-73.9); Platelet Count 192 T/CUMM (130-400); Red Blood Count 3.09 MC/CUMM (3.8-5.5); White Blood Count 8.6 T/CUMM (4-12)
[2019-01-03 22:13] LABS: Alanine Aminotransferase 146 U/L (13-56); Albumin 2.3 G/DL (3.4-5.0); Alkaline Phosphatase 208 U/L (45-117); Aspartate Amino Transferase 53 U/L (0-37); Blood Urea Nitrogen 29 MG/DL (7-18); Glucose 257 MG/DL (74-106); Osmolality,Calculated 289.7 MOS/KG (273-304); Total Protein 6.9 G/DL (6.4-8.3)
[2019-01-03 22:16] LABS: Troponin I 0.059 NG/ML (0.00-0.045)
[2019-01-03 22:18] LABS: Apearance,Urine CLEAR (Clear); Bacteria,Urine Occasional /HPF (Few); Bilirubin,Urine Negative (Negative); Blood, Urine Negative (Negative); Glucose,Urine (UA) 150 mg/dL (Negative); Hyaline Casts,Urine 1 /LPF (0-3); Ketones,Urine Negative (Negative); Nitrite,Urine Negative (Negative); Protein,Urine 100 MG/DL; RBC,Urine 2 /HPF (0-4); Urine Color Yellow (Yellow); Urine Specific Gravity 1.012 (1.001-1.035); Urine Urobilinogen < 2.0 EU/DL (0.2-1.0); WBC,Urine 3 /HPF (0-6)
[2019-01-03] MEDS ORDERED: ALBUTEROL 2.5 MG/3 ML NEB RESP TX STA (22:38)
[2019-01-03] MEDS ORDERED: NICOTINE 21 MG/24 HR PATCH TRANSDERM PRN (23:35)
[2019-01-03] MEDS ORDERED: traZODone 50 MG TABLET PEG PRN (23:58)
[2019-01-03] MEDS ORDERED: LORazepam 1 MG TABLET PEG PRN (23:58)
[2019-01-04] MEDS: ALBUTEROL/IPRATROPIUM 3 ML NEB RESP TX SCH ×4 (01:12→19:26)
[2019-01-04 02:09] LABS: ABG Base Excess 4.6 MMOL/L (-2.5-2.5); ABG HCO3 28.5 MMOL/L (20-26); ABG Oxygen Saturation 94.5 % (95-100); ABG PCO2 55.9 MM HG (35-48); ABG PH 7.355 (7.35-7.45); ABG PO2 72.1 MM HG (80-95); ABG TCO2 28.9 MMOL/L (23-27); Allen Test Positive
[2019-01-04] MEDS ORDERED: AMIODARONE INJ 450 MG in DEXTROSE 5% 241 ML IV SCH (03:00)
[2019-01-04] MEDS ORDERED: NOREPINEPHRINE 8 MG in SODIUM CHLORIDE 0.9% 242 ML IV PRN (03:02)
[2019-01-04] MEDS: LEVOTHYROXINE 150 MCG TABLET PEG SCH (06:23)
[2019-01-04] MEDS: METOPROLOL SUCCINATE XL 50 MG TABLET PO SCH ×2 (08:34→20:57)
[2019-01-04] MEDS: FUROSEMIDE 40 MG/4 ML VIAL IV SCH ×2 (08:35→15:27)
[2019-01-04] MEDS: DULoxetine 30 MG CAPSULE PO SCH (08:35)
[2019-01-04] MEDS: LANSOPRAZOLE ODT 30 MG TABLET PEG SCH (08:35)
[2019-01-04] MEDS: NITROFURANTOIN MACROCRYSTALS 100 MG CAPSULE PER TUBE SCH ×3 (08:41→21:30)
[2019-01-04] MEDS: INSULIN GLARGINE 100 UNIT/ML SUBCUT SCH ×2 (08:46→21:30)
[2019-01-04] MEDS ORDERED: DEXTROSE 50% 25 GM/50 ML VIAL IV PRN (09:48)
[2019-01-04] MEDS ORDERED: GLUCAGON 1 MG VIAL IM PRN (09:48)
[2019-01-04] MEDS ORDERED: DIGOXIN 0.5 MG/2 ML AMP IV ONE ×2 (09:58→12:00)
[2019-01-04] MEDS ORDERED: INSULIN LISPRO 100 UNIT/ML SUBCUT SCH (10:00)
[2019-01-04] MEDS: GENTAMICIN INJ 120 MG in PREMIX 1 EACH IV SCH ×2 (10:57→21:29)
[2019-01-04] MEDS ORDERED: METOPROLOL TARTRATE 50 MG TABLET PO ONE (14:35)
[2019-01-04] MEDS: INSULIN LISPRO 100 UNIT/ML SUBCUT SCH ×3 (15:22→23:28)
[2019-01-04] MEDS: AMIODARONE 200 MG TABLET PEG SCH (20:54)
[2019-01-04] MEDS: METOPROLOL TARTRATE 50 MG TABLET PO SCH ×2 (20:56→23:29)
[2019-01-04] MEDS: ATORVASTATIN 20 MG TABLET PEG SCH (21:30)
[2019-01-04] MEDS: POTASSIUM CHLORIDE 20 MEQ/15 ML UDCUP PEG SCH (21:30)
[2019-01-05] MEDS: NITROFURANTOIN MACROCRYSTALS 100 MG CAPSULE PER TUBE SCH ×4 (01:06→21:05)
[2019-01-05] MEDS: ALBUTEROL/IPRATROPIUM 3 ML NEB RESP TX SCH ×4 (01:22→20:02)
[2019-01-05 04:33] LABS: Basophils % 0.3 % (0.0-0.8); Eosinophils # 0.3 10*3/uL (0.0-0.87); Eosinophils % 2.5 % (0.00-10.9); Hematocrit 32.9 VOL% (35.7-47.0); Hemoglobin 9.8 GM/DL (12.0-16.0); Immature Granulocytes % 0.8 %; Immature Granulocytes Absolute 0.09 #; Lymphocytes % 16.7 % (21.3-54.2); Mean Corpuscular HGB Conc 29.8 GM/DL (32-36); Mean Corpuscular Volume 99.1 FL (87-102); Monocytes % 13.1 % (1.7-12.7); Neutrophils % 66.6 % (38.7-73.9); Red Blood Count 3.32 MC/CUMM (3.8-5.5); Red Cell Distribution Width 17.1 % (9.3-17.3); White Blood Count 11.8 T/CUMM (4-12)
[2019-01-05 04:39] LABS: Platelet Count 118 T/CUMM (130-400)
[2019-01-05] MEDS: INSULIN LISPRO 100 UNIT/ML SUBCUT SCH ×5 (04:55→21:01)
[2019-01-05] MEDS: LEVOTHYROXINE 150 MCG TABLET PEG SCH (06:15)
[2019-01-05] MEDS: INSULIN GLARGINE 100 UNIT/ML SUBCUT SCH ×2 (09:00→21:01)
[2019-01-05] MEDS: FUROSEMIDE 40 MG/4 ML VIAL IV SCH (09:00)
[2019-01-05] MEDS: METOPROLOL TARTRATE 50 MG TABLET PO SCH (09:00)
[2019-01-05] MEDS: AMIODARONE 200 MG TABLET PEG SCH ×2 (09:00→21:00)
[2019-01-05] MEDS: DULoxetine 30 MG CAPSULE PO SCH (09:00)
[2019-01-05] MEDS: METOPROLOL SUCCINATE XL 50 MG TABLET PO SCH ×2 (09:01→21:00)
[2019-01-05] MEDS: LANSOPRAZOLE ODT 30 MG TABLET PEG SCH (09:01)
[2019-01-05] MEDS: POTASSIUM CHLORIDE 20 MEQ/15 ML UDCUP PEG SCH (09:01)
[2019-01-05] MEDS: GENTAMICIN INJ 120 MG in PREMIX 1 EACH IV SCH (09:31)
[2019-01-05] MEDS: NYSTATIN POWDER 15 GM BOTTLE TOP SCH ×2 (11:00→21:02)
[2019-01-05] MEDS: FUROSEMIDE 40 MG TABLET PO SCH (16:36)
[2019-01-05] MEDS: ATORVASTATIN 20 MG TABLET PEG SCH (21:01)
[2019-01-06] MEDS: INSULIN LISPRO 100 UNIT/ML SUBCUT SCH ×6 (01:10→20:37)
[2019-01-06] MEDS: ALBUTEROL/IPRATROPIUM 3 ML NEB RESP TX SCH ×4 (02:11→19:20)
[2019-01-06] MEDS: NITROFURANTOIN MACROCRYSTALS 100 MG CAPSULE PER TUBE SCH ×4 (03:00→20:37)
[2019-01-06 04:48] LABS: Calcium 8.8 MG/DL (8.5-10.1); Osmolality,Calculated 291.7 MOS/KG (273-304)
[2019-01-06] MEDS: LEVOTHYROXINE 150 MCG TABLET PEG SCH (06:16)
[2019-01-06] MEDS: INSULIN GLARGINE 100 UNIT/ML SUBCUT SCH ×2 (08:46→20:38)
[2019-01-06] MEDS: NYSTATIN POWDER 15 GM BOTTLE TOP SCH ×2 (08:47→20:39)
[2019-01-06] MEDS: METOPROLOL SUCCINATE XL 50 MG TABLET PO SCH ×2 (08:47→20:38)
[2019-01-06] MEDS: DULoxetine 30 MG CAPSULE PO SCH (08:47)
[2019-01-06] MEDS: LANSOPRAZOLE ODT 30 MG TABLET PEG SCH (08:47)
[2019-01-06] MEDS: AMIODARONE 200 MG TABLET PEG SCH ×2 (08:47→20:38)
[2019-01-06] MEDS: FUROSEMIDE 40 MG TABLET PO SCH ×2 (08:47→16:43)
[2019-01-06] MEDS: METOCLOPRAMIDE 10 MG/10 ML UDCUP PO SCH (16:43)
[2019-01-06] MEDS: ATORVASTATIN 20 MG TABLET PEG SCH (20:37)
[2019-01-07] MEDS: ALBUTEROL/IPRATROPIUM 3 ML NEB RESP TX SCH ×4 (00:20→19:22)
[2019-01-07] MEDS: INSULIN LISPRO 100 UNIT/ML SUBCUT SCH ×6 (00:41→21:56)
[2019-01-07] MEDS: NITROFURANTOIN MACROCRYSTALS 100 MG CAPSULE PER TUBE SCH ×4 (03:38→21:55)
[2019-01-07] MEDS: traMADol 50 MG TABLET PO PRN ×2 (06:15→21:56)
[2019-01-07] MEDS: LEVOTHYROXINE 150 MCG TABLET PEG SCH (06:15)
[2019-01-07] MEDS: INSULIN GLARGINE 100 UNIT/ML SUBCUT SCH ×2 (09:42→21:57)
[2019-01-07] MEDS: METOCLOPRAMIDE 10 MG/10 ML UDCUP PO SCH ×3 (09:42→18:35)
[2019-01-07] MEDS: AMIODARONE 200 MG TABLET PEG SCH ×2 (09:43→21:55)
[2019-01-07] MEDS: FUROSEMIDE 40 MG TABLET PO SCH ×2 (09:43→18:35)
[2019-01-07] MEDS: LANSOPRAZOLE ODT 30 MG TABLET PEG SCH (09:43)
[2019-01-07] MEDS: DULoxetine 30 MG CAPSULE PO SCH (09:43)
[2019-01-07] MEDS: METOPROLOL SUCCINATE XL 50 MG TABLET PO SCH ×2 (09:44→21:56)
[2019-01-07] MEDS: NYSTATIN POWDER 15 GM BOTTLE TOP SCH ×2 (10:41→21:57)
[2019-01-07] MEDS: ATORVASTATIN 20 MG TABLET PEG SCH (21:56)
[2019-01-08] MEDS: INSULIN LISPRO 100 UNIT/ML SUBCUT SCH ×6 (01:00→21:25)
[2019-01-08] MEDS: ALBUTEROL/IPRATROPIUM 3 ML NEB RESP TX SCH ×4 (01:00→19:57)
[2019-01-08] MEDS: NITROFURANTOIN MACROCRYSTALS 100 MG CAPSULE PER TUBE SCH ×4 (01:27→21:26)
[2019-01-08] MEDS: LEVOTHYROXINE 150 MCG TABLET PEG SCH (06:06)
[2019-01-08] MEDS ORDERED: ONDANSETRON 4 MG/2 ML VIAL ONE (06:21)
[2019-01-08] MEDS: ONDANSETRON 4 MG TABLET PEG PRN (06:23)
[2019-01-08] MEDS: METOCLOPRAMIDE 10 MG/10 ML UDCUP PO SCH ×3 (08:50→18:36)
[2019-01-08] MEDS: INSULIN GLARGINE 100 UNIT/ML SUBCUT SCH ×2 (08:50→21:25)
[2019-01-08] MEDS: AMIODARONE 200 MG TABLET PEG SCH (08:51)
[2019-01-08] MEDS: LANSOPRAZOLE ODT 30 MG TABLET PEG SCH (08:51)
[2019-01-08] MEDS: DULoxetine 30 MG CAPSULE PO SCH (08:51)
[2019-01-08] MEDS: FUROSEMIDE 40 MG TABLET PO SCH (08:51)
[2019-01-08] MEDS: NYSTATIN POWDER 15 GM BOTTLE TOP SCH ×2 (08:52→21:27)
[2019-01-08] MEDS: METOPROLOL SUCCINATE XL 50 MG TABLET PO SCH (08:52)
[2019-01-08 12:20] LABS: Calcium 8.6 MG/DL (8.5-10.1); Osmolality,Calculated 288.2 MOS/KG (273-304)
[2019-01-08] MEDS: SODIUM CHLORIDE 0.9% 1,000 ML IV SCH (18:37)
[2019-01-08] MEDS: ATORVASTATIN 20 MG TABLET PEG SCH (21:26)
[2019-01-09] MEDS: AMIODARONE 200 MG TABLET PEG SCH ×3 (01:08→21:40)
[2019-01-09] MEDS: METOPROLOL SUCCINATE XL 50 MG TABLET PO SCH ×3 (01:08→21:40)
[2019-01-09] MEDS: INSULIN LISPRO 100 UNIT/ML SUBCUT SCH ×6 (01:11→21:40)
[2019-01-09] MEDS: ALBUTEROL/IPRATROPIUM 3 ML NEB RESP TX SCH ×4 (01:39→19:33)
[2019-01-09] MEDS: NITROFURANTOIN MACROCRYSTALS 100 MG CAPSULE PER TUBE SCH (02:40)
[2019-01-09] MEDS: LEVOTHYROXINE 150 MCG TABLET PEG SCH (05:45)
[2019-01-09] MEDS: DULoxetine 30 MG CAPSULE PO SCH (09:03)
[2019-01-09] MEDS: FUROSEMIDE 40 MG TABLET PO SCH (09:03)
[2019-01-09] MEDS: INSULIN GLARGINE 100 UNIT/ML SUBCUT SCH ×2 (09:04→21:00)
[2019-01-09] MEDS: LANSOPRAZOLE ODT 30 MG TABLET PEG SCH (09:04)
[2019-01-09] MEDS: NYSTATIN POWDER 15 GM BOTTLE TOP SCH ×2 (09:04→21:41)
[2019-01-09] MEDS: SODIUM CHLORIDE 0.9% 1,000 ML IV SCH (15:32)
[2019-01-09] MEDS: traMADol 50 MG TABLET PO PRN (16:51)
[2019-01-09] MEDS: ATORVASTATIN 20 MG TABLET PEG SCH (21:40)
[2019-01-10] MEDS: ALBUTEROL/IPRATROPIUM 3 ML NEB RESP TX SCH ×4 (00:12→19:28)
[2019-01-10] MEDS: INSULIN LISPRO 100 UNIT/ML SUBCUT SCH ×7 (01:07→23:48)
[2019-01-10] MEDS: LEVOTHYROXINE 150 MCG TABLET PEG SCH (06:43)
[2019-01-10 07:02] LABS: Basophils % 0.3 % (0.0-0.8); Eosinophils # 0.3 10*3/uL (0.0-0.87); Eosinophils % 4.1 % (0.00-10.9); Hematocrit 27.6 VOL% (35.7-47.0); Hemoglobin 8.2 GM/DL (12.0-16.0); Immature Granulocytes % 0.6 %; Immature Granulocytes Absolute 0.04 #; Lymphocytes # 1.4 10*3/uL (1.4-4.0); Lymphocytes % 21.3 % (21.3-54.2); Mean Corpuscular HGB Conc 29.7 GM/DL (32-36); Mean Corpuscular Volume 97.5 FL (87-102); Mean Platelet Volume 11.5 FL (9.6-12.0); Monocytes % 8.7 % (1.7-12.7); Platelet Count 175 T/CUMM (130-400); Red Blood Count 2.83 MC/CUMM (3.8-5.5); Red Cell Distribution Width 17.2 % (9.3-17.3); White Blood Count 6.8 T/CUMM (4-12)
[2019-01-10 07:17] LABS: Calcium 8.2 MG/DL (8.5-10.1)
[2019-01-10 07:19] LABS: Bilirubin,Direct 0.17 MG/DL (0.0-0.20); Bilirubin,Indirect 0.3 MG/DL (0.0-1.0); Bilirubin,Total 0.5 MG/DL (0.2-1.0); Total Protein 6.6 G/DL (6.4-8.3)
[2019-01-10] MEDS: INSULIN GLARGINE 100 UNIT/ML SUBCUT SCH ×2 (09:41→21:11)
[2019-01-10] MEDS: FUROSEMIDE 40 MG TABLET PO SCH (09:44)
[2019-01-10] MEDS: AMIODARONE 200 MG TABLET PEG SCH ×2 (09:44→21:10)
[2019-01-10] MEDS: METOPROLOL SUCCINATE XL 50 MG TABLET PO SCH (09:44)
[2019-01-10] MEDS: LANSOPRAZOLE ODT 30 MG TABLET PEG SCH (09:45)
[2019-01-10] MEDS: NYSTATIN POWDER 15 GM BOTTLE TOP SCH ×2 (09:46→21:21)
[2019-01-10] MEDS: SODIUM CHLORIDE 0.9% 1,000 ML IV SCH (09:46)
[2019-01-10] MEDS: ATORVASTATIN 20 MG TABLET PEG SCH (21:10)
[2019-01-10] MEDS: METOPROLOL SUCCINATE XL 25 MG TABLET PO SCH (21:10)
[2019-01-11] MEDS: SODIUM CHLORIDE 0.9% 1,000 ML IV SCH ×3 (01:10→21:39)
[2019-01-11] MEDS: ALBUTEROL/IPRATROPIUM 3 ML NEB RESP TX SCH ×4 (01:50→20:00)
[2019-01-11] MEDS: INSULIN LISPRO 100 UNIT/ML SUBCUT SCH ×5 (04:59→21:33)
[2019-01-11 05:00] LABS: Basophils % 0.4 % (0.0-0.8); Eosinophils # 0.2 10*3/uL (0.0-0.87); Eosinophils % 2.5 % (0.00-10.9); Hematocrit 27.4 VOL% (35.7-47.0); Hemoglobin 8.5 GM/DL (12.0-16.0); Immature Granulocytes % 0.8 %; Immature Granulocytes Absolute 0.06 #; Lymphocytes # 1.8 10*3/uL (1.4-4.0); Lymphocytes % 23.6 % (21.3-54.2); Mean Corpuscular Volume 95.1 FL (87-102); Mean Platelet Volume 11.6 FL (9.6-12.0); Monocytes % 9.3 % (1.7-12.7); Neutrophils % 63.4 % (38.7-73.9); Platelet Count 212 T/CUMM (130-400); Red Blood Count 2.88 MC/CUMM (3.8-5.5); Red Cell Distribution Width 17.2 % (9.3-17.3); White Blood Count 7.5 T/CUMM (4-12)
[2019-01-11 05:23] LABS: Albumin 2.3 G/DL (3.4-5.0); Bilirubin,Direct 0.2 MG/DL (0.0-0.20); Bilirubin,Indirect 0.2 MG/DL (0.0-1.0); Bilirubin,Total 0.4 MG/DL (0.2-1.0)
[2019-01-11 05:26] LABS: Calcium 8.5 MG/DL (8.5-10.1); Osmolality,Calculated 296.8 MOS/KG (273-304)
[2019-01-11] MEDS: LEVOTHYROXINE 150 MCG TABLET PEG SCH (05:46)
[2019-01-11] MEDS: AMIODARONE 200 MG TABLET PEG SCH ×2 (09:07→21:34)
[2019-01-11] MEDS: METOPROLOL SUCCINATE XL 25 MG TABLET PO SCH ×2 (09:07→21:34)
[2019-01-11] MEDS: NYSTATIN POWDER 15 GM BOTTLE TOP SCH ×2 (09:09→21:34)
[2019-01-11] MEDS: LANSOPRAZOLE ODT 30 MG TABLET PEG SCH (09:09)
[2019-01-11] MEDS: INSULIN GLARGINE 100 UNIT/ML SUBCUT SCH ×2 (09:09→21:33)
[2019-01-11] MEDS: ATORVASTATIN 20 MG TABLET PEG SCH (21:34)
[2019-01-12] MEDS: INSULIN LISPRO 100 UNIT/ML SUBCUT SCH ×6 (00:48→21:39)
[2019-01-12] MEDS: ALBUTEROL/IPRATROPIUM 3 ML NEB RESP TX SCH ×4 (00:58→20:15)
[2019-01-12] MEDS: LEVOTHYROXINE 150 MCG TABLET PEG SCH (05:35)
[2019-01-12 06:41] LABS: Calcium 8.7 MG/DL (8.5-10.1); Osmolality,Calculated 301.4 MOS/KG (273-304)
[2019-01-12] MEDS: AMIODARONE 200 MG TABLET PEG SCH ×2 (10:06→21:35)
[2019-01-12] MEDS: INSULIN GLARGINE 100 UNIT/ML SUBCUT SCH ×2 (10:06→21:36)
[2019-01-12] MEDS: LANSOPRAZOLE ODT 30 MG TABLET PEG SCH (10:07)
[2019-01-12] MEDS: METOPROLOL SUCCINATE XL 25 MG TABLET PO SCH ×2 (10:07→21:35)
[2019-01-12] MEDS: NYSTATIN POWDER 15 GM BOTTLE TOP SCH ×2 (10:10→21:36)
[2019-01-12] MEDS: traMADol 50 MG TABLET PO PRN (15:21)
[2019-01-12] MEDS: ONDANSETRON 4 MG TABLET PEG PRN (15:22)
[2019-01-12] MEDS: SODIUM CHLORIDE 0.9% 1,000 ML IV SCH (18:44)
[2019-01-12] MEDS: ATORVASTATIN 20 MG TABLET PEG SCH (21:35)
[2019-01-13] MEDS: ALBUTEROL/IPRATROPIUM 3 ML NEB RESP TX SCH ×5 (00:15→19:05)
[2019-01-13] MEDS: INSULIN LISPRO 100 UNIT/ML SUBCUT SCH ×6 (01:54→21:18)
[2019-01-13] MEDS: LEVOTHYROXINE 150 MCG TABLET PEG SCH (07:50)
[2019-01-13] MEDS: INSULIN GLARGINE 100 UNIT/ML SUBCUT SCH ×2 (09:06→21:18)
[2019-01-13] MEDS: NYSTATIN POWDER 15 GM BOTTLE TOP SCH ×2 (09:13→21:32)
[2019-01-13] MEDS: AMIODARONE 200 MG TABLET PEG SCH ×2 (09:13→21:32)
[2019-01-13] MEDS: LANSOPRAZOLE ODT 30 MG TABLET PEG SCH (09:13)
[2019-01-13] MEDS: METOPROLOL SUCCINATE XL 25 MG TABLET PO SCH ×2 (09:13→21:32)
[2019-01-13] MEDS: SODIUM CHLORIDE 0.9% 1,000 ML IV SCH (16:38)
[2019-01-13] MEDS: ATORVASTATIN 20 MG TABLET PEG SCH (21:32)
[2019-01-13] MEDS: traMADol 50 MG TABLET PO PRN (21:32)
[2019-01-14] MEDS: ALBUTEROL/IPRATROPIUM 3 ML NEB RESP TX SCH ×4 (00:06→20:20)
[2019-01-14] MEDS: INSULIN LISPRO 100 UNIT/ML SUBCUT SCH ×6 (01:10→20:56)
[2019-01-14] MEDS: LEVOTHYROXINE 150 MCG TABLET PEG SCH (07:10)
[2019-01-14] MEDS: traMADol 50 MG TABLET PO PRN (07:15)
[2019-01-14] MEDS: METOPROLOL SUCCINATE XL 25 MG TABLET PO SCH ×2 (08:35→20:57)
[2019-01-14] MEDS: AMIODARONE 200 MG TABLET PEG SCH ×2 (08:36→20:57)
[2019-01-14] MEDS: ONDANSETRON 4 MG TABLET PEG PRN (08:36)
[2019-01-14] MEDS: INSULIN GLARGINE 100 UNIT/ML SUBCUT SCH ×2 (08:36→20:56)
[2019-01-14] MEDS: NYSTATIN POWDER 15 GM BOTTLE TOP SCH ×2 (08:54→20:57)
[2019-01-14] MEDS: LANSOPRAZOLE ODT 30 MG TABLET PEG SCH (08:54)
[2019-01-14] MEDS: SODIUM CHLORIDE 0.9% 1,000 ML IV SCH (10:17)
[2019-01-14] MEDS: ATORVASTATIN 20 MG TABLET PEG SCH (20:57)
[2019-01-14] MEDS: amLODIPine 5 MG TABLET PO SCH (20:57)
[2019-01-15] MEDS: INSULIN LISPRO 100 UNIT/ML SUBCUT SCH ×4 (00:32→12:07)
[2019-01-15 05:09] LABS: Calcium 8.4 MG/DL (8.5-10.1); Osmolality,Calculated 299.3 MOS/KG (273-304)
[2019-01-15 05:10] LABS: Calcium 8.3 MG/DL (8.5-10.1); Osmolality,Calculated 299.3 MOS/KG (273-304)
[2019-01-15] MEDS: SODIUM CHLORIDE 0.9% 1,000 ML IV SCH (05:23)
[2019-01-15] MEDS: traMADol 50 MG TABLET PO PRN (06:49)
[2019-01-15] MEDS: LEVOTHYROXINE 150 MCG TABLET PEG SCH (06:49)
[2019-01-15] MEDS: ALBUTEROL/IPRATROPIUM 3 ML NEB RESP TX SCH ×3 (06:53→12:03)
[2019-01-15] MEDS: NYSTATIN POWDER 15 GM BOTTLE TOP SCH (08:42)
[2019-01-15] MEDS: INSULIN GLARGINE 100 UNIT/ML SUBCUT SCH (08:43)
[2019-01-15] MEDS: METOPROLOL SUCCINATE XL 25 MG TABLET PO SCH (08:43)
[2019-01-15] MEDS: AMIODARONE 200 MG TABLET PEG SCH (08:43)
[2019-01-15] MEDS: amLODIPine 5 MG TABLET PO SCH (08:45)
[2019-01-15] MEDS: LANSOPRAZOLE ODT 30 MG TABLET PEG SCH (08:46)
[2019-01-15 16:27] VITALS: BP 186/67
== END 2019-01-15 16:59 | DRG 291 ==
LOC: EDBD → EDUNIT# → N.ED 20:22 → N.EDINP 23:35 → SUATTDRO 23:35 → N.CC 01-04 00:32 → N.4E 01-07 15:51 → N.3E 01-11 01:21
PROVIDERS: ADMIT Internal Medicine; ATTEND Family Medicine

== ENCOUNTER 2019-02-18 23:58 | Inpatient (IN) ==
[2019-02-19] MEDS ORDERED: PROPOFOL 1,000 MG/100 ML BOTTLE IV ONE (00:20)
[2019-02-19] MEDS: PROPOFOL 1,000 MG/100 ML BOTTLE IV SCH ×5 (00:25→23:00)
[2019-02-19 00:57] LABS: Basophils # 0.1 10*3/uL (0.0-0.2); Basophils % 0.8 % (0.0-0.8); Eosinophils # 0.2 10*3/uL (0.0-0.87); Eosinophils % 1.5 % (0.00-10.9); Hematocrit 32.6 VOL% (35.7-47.0); Hemoglobin 9.7 GM/DL (12.0-16.0); Immature Granulocytes % 1.1 %; Immature Granulocytes Absolute 0.13 #; Lymphocytes % 34.6 % (21.3-54.2); Mean Corpuscular HGB Conc 29.8 GM/DL (32-36); Mean Corpuscular Volume 100.6 FL (87-102); Mean Platelet Volume 11.6 FL (9.6-12.0); Monocytes % 9.5 % (1.7-12.7); NRBC # 0.02 10*3/uL; Neutrophils % 52.5 % (38.7-73.9); Platelet Count 272 T/CUMM (130-400); Red Blood Count 3.24 MC/CUMM (3.8-5.5); Red Cell Distribution Width 15.3 % (9.3-17.3); White Blood Count 11.6 T/CUMM (4-12)
[2019-02-19 01:00] LABS: Allen Test Positive; Pt O2 Delivery Device Ventilator
[2019-02-19 01:04] LABS: ABG Base Excess 9.6 MMOL/L (-2.5-2.5); ABG HCO3 33.4 MMOL/L (20-26); ABG PCO2 51.6 MM HG (35-48); ABG PH 7.442 (7.35-7.45); ABG TCO2 32.1 MMOL/L (23-27)
[2019-02-19 01:04] LABS: INR 0.9; PT Patient Result 9.8 SECS; Partial Thromboplastin Time 21.9 SECS (0-40)
[2019-02-19 01:13] LABS: Bilirubin,Total 0.6 MG/DL (0.2-1.0); Calcium 8.9 MG/DL (8.5-10.1); Osmolality,Calculated 302.1 MOS/KG (273-304); Total Protein 8.4 G/DL (6.4-8.3)
[2019-02-19] MEDS ORDERED: ETOMIDATE 20 MG/10 ML VIAL IV STA (02:11)
[2019-02-19] MEDS ORDERED: ROCURONIUM 100 MG/10 ML VIAL IV STA (02:12)
[2019-02-19 02:35] LABS: Bilirubin,Urine Negative (Negative); Blood, Urine Negative (Negative); Glucose,Urine (UA) 50 mg/dL (Negative); Hyaline Casts,Urine 5 /LPF (0-3); Ketones,Urine Negative (Negative); Mucus,Urine Occasional /LPF (Occasional); Nitrite,Urine Negative (Negative); Protein,Urine 100 MG/DL; Squamous Epithelial Cell,Urine Occasional /HPF (0-10); Urine Color Yellow (Yellow); Urine Specific Gravity 1.017 (1.001-1.035); Urine Urobilinogen < 2.0 EU/DL (0.2-1.0)
[2019-02-19 02:37] LABS: Apearance,Urine Slightly Hazy (Clear)
[2019-02-19 02:39] LABS: WBC,Urine 2 /HPF (0-6)
[2019-02-19] MEDS ORDERED: ONDANSETRON 4 MG/2 ML VIAL IV PRN (03:43)
[2019-02-19] MEDS ORDERED: MAGNESIUM SULF RIDER 2 GM in PREMIX 1 EACH IV PRN (03:43)
[2019-02-19] MEDS ORDERED: MAGNESIUM SULF RIDER 4 GM in PREMIX 1 EACH IV PRN (03:43)
[2019-02-19] MEDS ORDERED: MIDAZOLAM 100 MG in SODIUM CHLORIDE 0.9% 80 ML IV PRN (03:43)
[2019-02-19] MEDS ORDERED: ALBUTEROL 2.5 MG/3 ML NEB RESP TX PRN (03:43)
[2019-02-19] MEDS ORDERED: ENOXAPARIN 40 MG/0.4 ML SYRINGE SUBCUT SCH (04:00)
[2019-02-19] MEDS ORDERED: PROPOFOL 1,000 MG/100 ML BOTTLE IV SCH (04:00)
[2019-02-19] MEDS ORDERED: SODIUM CHLORIDE 0.9% 1,000 ML IV SCH (04:00)
[2019-02-19] MEDS ORDERED: LEVOFLOXACIN INJ 750 MG in PREMIX 1 EACH IV SCH (04:00)
[2019-02-19] MEDS: FAMOTIDINE 20 MG/2 ML VIAL IV SCH (04:59)
[2019-02-19 07:13] LABS: ABG Base Excess 10.7 MMOL/L (-2.5-2.5); ABG HCO3 34.4 MMOL/L (20-26); ABG PCO2 37.1 MM HG (35-48); ABG PH 7.566 (7.35-7.45); ABG TCO2 30.9 MMOL/L (23-27); Allen Test Positive; Pt O2 Delivery Device Ventilator
[2019-02-19 07:20] LABS: Basophils % 0.4 % (0.0-0.8); Eosinophils # 0.2 10*3/uL (0.0-0.87); Eosinophils % 1.4 % (0.00-10.9); Hematocrit 28.9 VOL% (35.7-47.0); Hemoglobin 8.9 GM/DL (12.0-16.0); Immature Granulocytes % 0.8 %; Immature Granulocytes Absolute 0.09 #; Lymphocytes # 3.4 10*3/uL (1.4-4.0); Lymphocytes % 31.1 % (21.3-54.2); Mean Corpuscular HGB Conc 30.8 GM/DL (32-36); Mean Corpuscular Volume 97.3 FL (87-102); Mean Platelet Volume 10.8 FL (9.6-12.0); Monocytes % 9.5 % (1.7-12.7); Neutrophils % 56.8 % (38.7-73.9); Platelet Count 215 T/CUMM (130-400); Red Blood Count 2.97 MC/CUMM (3.8-5.5); Red Cell Distribution Width 15.3 % (9.3-17.3)
[2019-02-19] MEDS: ALBUTEROL/IPRATROPIUM 3 ML NEB RESP TX SCH ×3 (07:31→19:23)
[2019-02-19 07:42] LABS: Alanine Aminotransferase 19 U/L (13-56); Albumin 2.4 G/DL (3.4-5.0); Alkaline Phosphatase 69 U/L (45-117); Aspartate Amino Transferase 26 U/L (0-37); Bilirubin,Total < 0.39 MG/DL (0.2-1.0); Blood Urea Nitrogen 79 MG/DL (7-18); Calcium 8.9 MG/DL (8.5-10.1); Glucose 242 MG/DL (74-106); Osmolality,Calculated 299.2 MOS/KG (273-304); Total Protein 7.6 G/DL (6.4-8.3)
[2019-02-19] MEDS ORDERED: FUROSEMIDE 40 MG/4 ML VIAL IV SCH (08:00)
[2019-02-19 09:03] LABS: Troponin I 0.033 NG/ML (0.00-0.045)
[2019-02-19] MEDS ORDERED: SODIUM CHLORIDE 0.9% 1,000 ML IV ONE (09:21)
[2019-02-19] MEDS ORDERED: GLUCAGON 1 MG VIAL IM PRN (12:40)
[2019-02-19] MEDS ORDERED: DEXTROSE 50% 25 GM/50 ML VIAL IV PRN (12:40)
[2019-02-19] MEDS ORDERED: DEXTROSE 10% 250 ML IV PRN (12:49)
[2019-02-19] MEDS: SODIUM CHLORIDE 0.9% 1,000 ML IV SCH ×2 (14:30→17:46)
[2019-02-19] MEDS: INSULIN REGULAR 100 UNIT/ML SUBCUT SCH (19:16)
[2019-02-20] MEDS: INSULIN REGULAR 100 UNIT/ML SUBCUT SCH ×4 (00:36→18:14)
[2019-02-20] MEDS: SODIUM CHLORIDE 0.9% 1,000 ML IV SCH ×3 (00:39→18:14)
[2019-02-20] MEDS: ALBUTEROL/IPRATROPIUM 3 ML NEB RESP TX SCH ×4 (00:49→19:00)
[2019-02-20] MEDS: PROPOFOL 1,000 MG/100 ML BOTTLE IV SCH ×5 (02:41→18:15)
[2019-02-20 02:56] LABS: ABG Base Excess 2.3 MMOL/L (-2.5-2.5); ABG HCO3 26.5 MMOL/L (20-26); ABG Oxygen Saturation 98.5 % (95-100); ABG PCO2 44.5 MM HG (35-48); ABG PH 7.399 (7.35-7.45); ABG TCO2 25.4 MMOL/L (23-27); Allen Test Positive; Pt O2 Delivery Device Ventilator
[2019-02-20] MEDS: FAMOTIDINE 20 MG/2 ML VIAL IV SCH (05:29)
[2019-02-20 05:51] LABS: Basophils % 0.3 % (0.0-0.8); Eosinophils # 0.1 10*3/uL (0.0-0.87); Eosinophils % 1.1 % (0.00-10.9); Hematocrit 28.6 VOL% (35.7-47.0); Hemoglobin 8.6 GM/DL (12.0-16.0); Immature Granulocytes % 0.6 %; Immature Granulocytes Absolute 0.08 #; Lymphocytes # 1.7 10*3/uL (1.4-4.0); Lymphocytes % 13.4 % (21.3-54.2); Mean Corpuscular HGB Conc 30.1 GM/DL (32-36); Mean Corpuscular Volume 100.4 FL (87-102); Mean Platelet Volume 11.4 FL (9.6-12.0); Monocytes % 10.7 % (1.7-12.7); Neutrophils % 73.9 % (38.7-73.9); Platelet Count 187 T/CUMM (130-400); Red Blood Count 2.85 MC/CUMM (3.8-5.5); Red Cell Distribution Width 15.6 % (9.3-17.3); White Blood Count 12.4 T/CUMM (4-12)
[2019-02-20 06:29] LABS: Blood Urea Nitrogen 70 MG/DL (7-18); Calcium 8.2 MG/DL (8.5-10.1); Glucose 219 MG/DL (74-106); Osmolality,Calculated 300.8 MOS/KG (273-304); Troponin I < 0.015 NG/ML (0.00-0.045)
[2019-02-20 06:30] LABS: Prealbumin 22.1 MG/DL (20-40)
[2019-02-20] MEDS: POTASSIUM CHLORIDE RIDER 10 MEQ in PREMIX 1 EACH IV PRN ×5 (06:50→18:07)
[2019-02-20] MEDS: ENOXAPARIN 30 MG/0.3 ML SYRINGE SUBCUT SCH (08:21)
[2019-02-20] MEDS ORDERED: LORazepam 0.5 MG TABLET PEG PRN (11:28)
[2019-02-20] MEDS ORDERED: traZODone 50 MG TABLET PEG PRN (11:28)
[2019-02-20] MEDS: AMIODARONE 200 MG TABLET PEG SCH ×2 (12:45→20:49)
[2019-02-20] MEDS ORDERED: AMIODARONE 200 MG TABLET ONE (12:53)
[2019-02-20] MEDS: INSULIN GLARGINE 100 UNIT/ML SUBCUT SCH (20:47)
[2019-02-20] MEDS: METOPROLOL SUCCINATE XL 50 MG TABLET PO SCH (20:48)
[2019-02-20] MEDS: ATORVASTATIN 20 MG TABLET PEG SCH (20:48)
[2019-02-20] MEDS: hydrALAZINE 25 MG TABLET PEG SCH (20:48)
[2019-02-20] MEDS: ASPIRIN CHEW 81 MG TABLET PO SCH (20:49)
[2019-02-20] MEDS ORDERED: INSULIN GLARGINE 100 UNIT/ML SUBCUT SCH (21:00)
[2019-02-21] MEDS: INSULIN REGULAR 100 UNIT/ML SUBCUT SCH ×5 (00:10→23:33)
[2019-02-21] MEDS: PROPOFOL 1,000 MG/100 ML BOTTLE IV SCH ×4 (00:30→20:50)
[2019-02-21] MEDS: ALBUTEROL/IPRATROPIUM 3 ML NEB RESP TX SCH ×4 (00:40→19:27)
[2019-02-21] MEDS: SODIUM CHLORIDE 0.9% 1,000 ML IV SCH ×2 (02:28→10:36)
[2019-02-21 04:19] LABS: Basophils % 0.4 % (0.0-0.8); Eosinophils # 0.3 10*3/uL (0.0-0.87); Eosinophils % 2.7 % (0.00-10.9); Hematocrit 27.2 VOL% (35.7-47.0); Hemoglobin 8.3 GM/DL (12.0-16.0); Immature Granulocytes % 0.8 %; Immature Granulocytes Absolute 0.08 #; Lymphocytes % 19.2 % (21.3-54.2); Mean Corpuscular HGB Conc 30.5 GM/DL (32-36); Mean Corpuscular Volume 100.7 FL (87-102); Mean Platelet Volume 11.7 FL (9.6-12.0); Monocytes % 8.5 % (1.7-12.7); Neutrophils % 68.4 % (38.7-73.9); Platelet Count 204 T/CUMM (130-400); Red Cell Distribution Width 15.9 % (9.3-17.3); White Blood Count 10.3 T/CUMM (4-12)
[2019-02-21 04:31] LABS: ABG Base Excess -2.1 MMOL/L (-2.5-2.5); ABG HCO3 22.6 MMOL/L (20-26); ABG Oxygen Saturation 96.6 % (95-100); ABG PCO2 42.5 MM HG (35-48); ABG PO2 85.5 MM HG (80-95); ABG TCO2 21.6 MMOL/L (23-27)
[2019-02-21] MEDS: FAMOTIDINE 20 MG/2 ML VIAL IV SCH (04:45)
[2019-02-21 05:02] LABS: Calcium 7.1 MG/DL (8.5-10.1); Osmolality,Calculated 296.3 MOS/KG (273-304)
[2019-02-21] MEDS: POTASSIUM CHLORIDE RIDER 10 MEQ in PREMIX 1 EACH IV PRN ×3 (05:20→07:25)
[2019-02-21] MEDS: MULTIVITAMIN LIQUID (CENTRUM) 60 ML BOTTLE PER TUBE SCH (08:40)
[2019-02-21] MEDS: INSULIN GLARGINE 100 UNIT/ML SUBCUT SCH ×2 (08:41→20:26)
[2019-02-21] MEDS: AMIODARONE 200 MG TABLET PEG SCH ×2 (08:43→21:26)
[2019-02-21] MEDS: ENOXAPARIN 30 MG/0.3 ML SYRINGE SUBCUT SCH (08:43)
[2019-02-21] MEDS: amLODIPine 5 MG TABLET PO SCH (08:43)
[2019-02-21] MEDS: LEVOTHYROXINE 150 MCG TABLET PEG SCH (08:43)
[2019-02-21] MEDS: METOPROLOL SUCCINATE XL 50 MG TABLET PO SCH ×2 (08:43→21:26)
[2019-02-21] MEDS: hydrALAZINE 25 MG TABLET PEG SCH (08:44)
[2019-02-21] MEDS ORDERED: LEVOFLOXACIN 750 MG TABLET PER TUBE SCH (09:00)
[2019-02-21] MEDS: LEVOFLOXACIN INJ 750 MG in PREMIX 1 EACH IV SCH (10:15)
[2019-02-21] MEDS: ATORVASTATIN 20 MG TABLET PEG SCH (20:26)
[2019-02-21] MEDS: ASPIRIN CHEW 81 MG TABLET PO SCH (20:26)
[2019-02-22] MEDS: ALBUTEROL/IPRATROPIUM 3 ML NEB RESP TX SCH ×4 (00:11→19:28)
[2019-02-22] MEDS: hydrALAZINE 25 MG TABLET PEG SCH ×3 (01:45→22:07)
[2019-02-22 03:42] LABS: ABG Base Excess -3.4 MMOL/L (-2.5-2.5); ABG HCO3 21.5 MMOL/L (20-26); ABG Oxygen Saturation 93.7 % (95-100); ABG PCO2 41.5 MM HG (35-48); ABG PH 7.336 (7.35-7.45); ABG PO2 68.8 MM HG (80-95); ABG TCO2 20.7 MMOL/L (23-27); Allen Test Positive; Pt O2 Delivery Device Ventilator
[2019-02-22 03:44] LABS: Basophils # 0.1 10*3/uL (0.0-0.2); Basophils % 0.6 % (0.0-0.8); Eosinophils # 0.3 10*3/uL (0.0-0.87); Eosinophils % 3.4 % (0.00-10.9); Hematocrit 26.2 VOL% (35.7-47.0); Hemoglobin 7.8 GM/DL (12.0-16.0); Immature Granulocytes % 0.6 %; Immature Granulocytes Absolute 0.05 #; Lymphocytes # 1.9 10*3/uL (1.4-4.0); Lymphocytes % 22.8 % (21.3-54.2); Mean Corpuscular HGB Conc 29.8 GM/DL (32-36); Mean Corpuscular Volume 100.8 FL (87-102); Mean Platelet Volume 11.4 FL (9.6-12.0); Monocytes % 8.9 % (1.7-12.7); Neutrophils % 63.7 % (38.7-73.9); Platelet Count 211 T/CUMM (130-400); Red Cell Distribution Width 15.9 % (9.3-17.3); White Blood Count 8.2 T/CUMM (4-12)
[2019-02-22 03:56] LABS: Osmolality,Calculated 297.4 MOS/KG (273-304)
[2019-02-22] MEDS: FAMOTIDINE 20 MG/2 ML VIAL IV SCH (04:08)
[2019-02-22] MEDS: POTASSIUM CHLORIDE RIDER 10 MEQ in PREMIX 1 EACH IV PRN ×2 (04:19→05:26)
[2019-02-22] MEDS: INSULIN REGULAR 100 UNIT/ML SUBCUT SCH ×3 (05:40→17:03)
[2019-02-22] MEDS: MULTIVITAMIN LIQUID (CENTRUM) 60 ML BOTTLE PER TUBE SCH (08:04)
[2019-02-22] MEDS: ENOXAPARIN 30 MG/0.3 ML SYRINGE SUBCUT SCH (08:04)
[2019-02-22] MEDS: traMADol 50 MG TABLET PO PRN (08:05)
[2019-02-22] MEDS: AMIODARONE 200 MG TABLET PEG SCH ×2 (08:06→22:07)
[2019-02-22] MEDS: INSULIN GLARGINE 100 UNIT/ML SUBCUT SCH ×2 (08:06→22:06)
[2019-02-22] MEDS: amLODIPine 5 MG TABLET PO SCH (08:06)
[2019-02-22] MEDS: LEVOTHYROXINE 150 MCG TABLET PEG SCH (08:06)
[2019-02-22] MEDS: METOPROLOL SUCCINATE XL 50 MG TABLET PO SCH ×2 (08:06→22:06)
[2019-02-22] MEDS: PROPOFOL 1,000 MG/100 ML BOTTLE IV SCH (14:30)
[2019-02-22] MEDS: ASPIRIN CHEW 81 MG TABLET PO SCH (22:06)
[2019-02-22] MEDS: ATORVASTATIN 20 MG TABLET PEG SCH (22:06)
[2019-02-23] MEDS: INSULIN REGULAR 100 UNIT/ML SUBCUT SCH ×4 (00:31→18:13)
[2019-02-23] MEDS: ALBUTEROL/IPRATROPIUM 3 ML NEB RESP TX SCH ×4 (01:00→19:13)
[2019-02-23 04:15] LABS: ABG Base Excess -4.8 MMOL/L (-2.5-2.5); ABG HCO3 20.3 MMOL/L (20-26); ABG Oxygen Saturation 93.3 % (95-100); ABG PCO2 43.6 MM HG (35-48); ABG PH 7.299 (7.35-7.45); ABG PO2 76.8 MM HG (80-95); ABG TCO2 20.1 MMOL/L (23-27); Allen Test Positive; Pt O2 Delivery Device Ventilator
[2019-02-23] MEDS: FAMOTIDINE 20 MG/2 ML VIAL IV SCH (04:25)
[2019-02-23 04:32] LABS: Basophils % 0.4 % (0.0-0.8); Eosinophils # 0.3 10*3/uL (0.0-0.87); Eosinophils % 3.6 % (0.00-10.9); Hematocrit 26.6 VOL% (35.7-47.0); Immature Granulocytes Absolute 0.08 #; Lymphocytes # 2.2 10*3/uL (1.4-4.0); Lymphocytes % 28.6 % (21.3-54.2); Mean Corpuscular HGB Conc 30.1 GM/DL (32-36); Mean Corpuscular Volume 100.8 FL (87-102); Mean Platelet Volume 11.5 FL (9.6-12.0); Monocytes % 9.2 % (1.7-12.7); Neutrophils % 57.2 % (38.7-73.9); Platelet Count 220 T/CUMM (130-400); Red Blood Count 2.64 MC/CUMM (3.8-5.5); White Blood Count 7.8 T/CUMM (4-12)
[2019-02-23 04:44] LABS: Osmolality,Calculated 298.1 MOS/KG (273-304); Prealbumin 16.2 MG/DL (20-40)
[2019-02-23] MEDS: POTASSIUM CHLORIDE RIDER 10 MEQ in PREMIX 1 EACH IV PRN ×2 (05:28→06:43)
[2019-02-23] MEDS: MULTIVITAMIN LIQUID (CENTRUM) 60 ML BOTTLE PER TUBE SCH (08:51)
[2019-02-23] MEDS: ENOXAPARIN 30 MG/0.3 ML SYRINGE SUBCUT SCH (08:52)
[2019-02-23] MEDS: LEVOTHYROXINE 150 MCG TABLET PEG SCH (08:52)
[2019-02-23] MEDS: INSULIN GLARGINE 100 UNIT/ML SUBCUT SCH ×2 (08:52→21:22)
[2019-02-23] MEDS: amLODIPine 5 MG TABLET PO SCH (08:52)
[2019-02-23] MEDS: LEVOFLOXACIN INJ 750 MG in PREMIX 1 EACH IV SCH (08:52)
[2019-02-23] MEDS: hydrALAZINE 25 MG TABLET PEG SCH ×2 (08:53→21:21)
[2019-02-23] MEDS: AMIODARONE 200 MG TABLET PEG SCH ×2 (08:53→21:21)
[2019-02-23] MEDS: PROPOFOL 1,000 MG/100 ML BOTTLE IV SCH (08:53)
[2019-02-23] MEDS: METOPROLOL SUCCINATE XL 50 MG TABLET PO SCH (08:54)
[2019-02-23] MEDS: ATORVASTATIN 20 MG TABLET PEG SCH (21:21)
[2019-02-23] MEDS: ASPIRIN CHEW 81 MG TABLET PO SCH (21:21)
[2019-02-23] MEDS: METOPROLOL TARTRATE 50 MG TABLET PER TUBE SCH (21:21)
[2019-02-24] MEDS: INSULIN REGULAR 100 UNIT/ML SUBCUT SCH ×4 (00:11→18:12)
[2019-02-24] MEDS: ALBUTEROL/IPRATROPIUM 3 ML NEB RESP TX SCH ×4 (00:40→19:53)
[2019-02-24 03:58] LABS: ABG Base Excess -4.3 MMOL/L (-2.5-2.5); ABG HCO3 20.7 MMOL/L (20-26); ABG Oxygen Saturation 92.1 % (95-100); ABG PCO2 40.1 MM HG (35-48); ABG PH 7.331 (7.35-7.45); ABG PO2 65.2 MM HG (80-95); ABG TCO2 19.9 MMOL/L (23-27); Allen Test Positive; Pt O2 Delivery Device Ventilator
[2019-02-24] MEDS: FAMOTIDINE 20 MG/2 ML VIAL IV SCH (04:14)
[2019-02-24] MEDS: PROPOFOL 1,000 MG/100 ML BOTTLE IV SCH ×2 (04:56→18:06)
[2019-02-24] MEDS: MULTIVITAMIN LIQUID (CENTRUM) 60 ML BOTTLE PER TUBE SCH (08:42)
[2019-02-24] MEDS: methylPREDNISolone SOD SUC 40 MG/1 ML VIAL IV SCH ×2 (08:42→18:11)
[2019-02-24] MEDS: hydrALAZINE 25 MG TABLET PEG SCH ×2 (08:42→23:57)
[2019-02-24] MEDS: INSULIN GLARGINE 100 UNIT/ML SUBCUT SCH ×2 (08:43→20:00)
[2019-02-24] MEDS: ENOXAPARIN 30 MG/0.3 ML SYRINGE SUBCUT SCH (08:43)
[2019-02-24] MEDS: AMIODARONE 200 MG TABLET PEG SCH ×2 (08:43→23:57)
[2019-02-24] MEDS: METOPROLOL TARTRATE 50 MG TABLET PER TUBE SCH ×2 (08:43→20:01)
[2019-02-24] MEDS: amLODIPine 5 MG TABLET PO SCH (08:43)
[2019-02-24] MEDS: LEVOTHYROXINE 150 MCG TABLET PEG SCH (08:43)
[2019-02-24] MEDS: traMADol 50 MG TABLET PO PRN (20:01)
[2019-02-24] MEDS: ATORVASTATIN 20 MG TABLET PEG SCH (20:01)
[2019-02-24] MEDS: ASPIRIN CHEW 81 MG TABLET PO SCH (20:01)
[2019-02-25] MEDS: INSULIN REGULAR 100 UNIT/ML SUBCUT SCH ×4 (00:04→18:52)
[2019-02-25] MEDS: methylPREDNISolone SOD SUC 40 MG/1 ML VIAL IV SCH ×3 (00:04→18:16)
[2019-02-25] MEDS: ALBUTEROL/IPRATROPIUM 3 ML NEB RESP TX SCH ×4 (00:34→20:00)
[2019-02-25 03:07] LABS: ABG Base Excess -4.7 MMOL/L (-2.5-2.5); ABG HCO3 20.5 MMOL/L (20-26); ABG Oxygen Saturation 95.4 % (95-100); ABG PCO2 36.9 MM HG (35-48); ABG PH 7.351 (7.35-7.45); ABG PO2 77.9 MM HG (80-95); ABG TCO2 18.9 MMOL/L (23-27); Allen Test Positive; Pt O2 Delivery Device Ventilator
[2019-02-25] MEDS: PROPOFOL 1,000 MG/100 ML BOTTLE IV SCH (05:38)
[2019-02-25] MEDS: FAMOTIDINE 20 MG/2 ML VIAL IV SCH (05:38)
[2019-02-25 06:03] LABS: Basophils % 0.3 % (0.0-0.8); Hematocrit 30.8 VOL% (35.7-47.0); Hemoglobin 9.3 GM/DL (12.0-16.0); Immature Granulocytes % 3.8 %; Immature Granulocytes Absolute 0.37 #; Lymphocytes # 0.9 10*3/uL (1.4-4.0); Lymphocytes % 9.4 % (21.3-54.2); Mean Corpuscular HGB Conc 30.2 GM/DL (32-36); Mean Corpuscular Volume 98.7 FL (87-102); Mean Platelet Volume 11.7 FL (9.6-12.0); Monocytes % 3.8 % (1.7-12.7); Neutrophils % 82.7 % (38.7-73.9); Platelet Count 212 T/CUMM (130-400); Red Blood Count 3.12 MC/CUMM (3.8-5.5); Red Cell Distribution Width 15.7 % (9.3-17.3); White Blood Count 9.8 T/CUMM (4-12)
[2019-02-25 06:27] LABS: Calcium 8.7 MG/DL (8.5-10.1); Osmolality,Calculated 304.8 MOS/KG (273-304)
[2019-02-25] MEDS: hydrALAZINE 25 MG TABLET PEG SCH ×2 (09:53→21:40)
[2019-02-25] MEDS: ENOXAPARIN 30 MG/0.3 ML SYRINGE SUBCUT SCH (09:54)
[2019-02-25] MEDS: MULTIVITAMIN LIQUID (CENTRUM) 60 ML BOTTLE PER TUBE SCH (09:54)
[2019-02-25] MEDS: METOPROLOL TARTRATE 50 MG TABLET PER TUBE SCH ×2 (09:54→21:41)
[2019-02-25] MEDS: amLODIPine 5 MG TABLET PO SCH (09:54)
[2019-02-25] MEDS: INSULIN GLARGINE 100 UNIT/ML SUBCUT SCH ×2 (09:54→21:41)
[2019-02-25] MEDS: AMIODARONE 200 MG TABLET PEG SCH ×2 (09:54→21:41)
[2019-02-25] MEDS: LEVOTHYROXINE 150 MCG TABLET PEG SCH (09:55)
[2019-02-25] MEDS: LEVOFLOXACIN INJ 750 MG in PREMIX 1 EACH IV SCH (09:56)
[2019-02-25] MEDS: ASPIRIN CHEW 81 MG TABLET PO SCH (21:41)
[2019-02-25] MEDS: ATORVASTATIN 20 MG TABLET PEG SCH (21:41)
[2019-02-26] MEDS: INSULIN REGULAR 100 UNIT/ML SUBCUT SCH ×4 (00:45→18:18)
[2019-02-26] MEDS: methylPREDNISolone SOD SUC 40 MG/1 ML VIAL IV SCH ×3 (00:46→16:51)
[2019-02-26] MEDS: ALBUTEROL/IPRATROPIUM 3 ML NEB RESP TX SCH ×4 (02:12→19:25)
[2019-02-26 04:16] LABS: ABG Base Excess -4.4 MMOL/L (-2.5-2.5); ABG Oxygen Saturation 91.3 % (95-100); ABG PCO2 39.4 MM HG (35-48); ABG PH 7.344 (7.35-7.45); ABG PO2 68.1 MM HG (80-95); ABG TCO2 22.2 MMOL/L (23-27); Allen Test Positive; Pt O2 Delivery Device BIPAP
[2019-02-26] MEDS: FAMOTIDINE 20 MG/2 ML VIAL IV SCH (04:34)
[2019-02-26 05:50] LABS: Basophils % 0.2 % (0.0-0.8); Hematocrit 26.1 VOL% (35.7-47.0); Hemoglobin 7.8 GM/DL (12.0-16.0); Immature Granulocytes % 2.2 %; Immature Granulocytes Absolute 0.24 #; Lymphocytes # 0.8 10*3/uL (1.4-4.0); Lymphocytes % 6.9 % (21.3-54.2); Mean Corpuscular HGB Conc 29.9 GM/DL (32-36); Mean Platelet Volume 11.3 FL (9.6-12.0); Monocytes % 3.8 % (1.7-12.7); Neutrophils % 86.9 % (38.7-73.9); Platelet Count 249 T/CUMM (130-400); Red Blood Count 2.61 MC/CUMM (3.8-5.5); Red Cell Distribution Width 15.9 % (9.3-17.3)
[2019-02-26 06:14] LABS: Calcium 8.5 MG/DL (8.5-10.1); Osmolality,Calculated 311.7 MOS/KG (273-304)
[2019-02-26 06:20] LABS: Prealbumin 24.7 MG/DL (20-40)
[2019-02-26] MEDS: hydrALAZINE 25 MG TABLET PEG SCH ×2 (09:20→20:43)
[2019-02-26] MEDS: AMIODARONE 200 MG TABLET PEG SCH ×2 (09:21→20:43)
[2019-02-26] MEDS: amLODIPine 5 MG TABLET PO SCH (09:21)
[2019-02-26] MEDS: INSULIN GLARGINE 100 UNIT/ML SUBCUT SCH ×2 (09:21→20:44)
[2019-02-26] MEDS: METOPROLOL TARTRATE 50 MG TABLET PER TUBE SCH ×2 (09:21→20:43)
[2019-02-26] MEDS: ENOXAPARIN 30 MG/0.3 ML SYRINGE SUBCUT SCH (09:21)
[2019-02-26] MEDS: LEVOTHYROXINE 150 MCG TABLET PEG SCH (09:22)
[2019-02-26] MEDS: THEOPHYLLINE ER (24 HR) 400 MG CAPSULE PO SCH (09:22)
[2019-02-26] MEDS: MULTIVITAMIN LIQUID (CENTRUM) 60 ML BOTTLE PER TUBE SCH (10:28)
[2019-02-26] MEDS: ATORVASTATIN 20 MG TABLET PEG SCH (20:43)
[2019-02-26] MEDS: ASPIRIN CHEW 81 MG TABLET PO SCH (20:44)
[2019-02-27] MEDS: ALBUTEROL/IPRATROPIUM 3 ML NEB RESP TX SCH ×4 (00:15→19:29)
[2019-02-27] MEDS: methylPREDNISolone SOD SUC 40 MG/1 ML VIAL IV SCH ×3 (00:43→17:20)
[2019-02-27] MEDS: INSULIN REGULAR 100 UNIT/ML SUBCUT SCH ×5 (00:43→20:18)
[2019-02-27 04:13] LABS: Allen Test Positive; Pt O2 Delivery Device Other
[2019-02-27 04:14] LABS: ABG Base Excess -4.1 MMOL/L (-2.5-2.5); ABG HCO3 20.9 MMOL/L (20-26); ABG Oxygen Saturation 90.8 % (95-100); ABG PCO2 39.2 MM HG (35-48); ABG PH 7.342 (7.35-7.45); ABG PO2 59.9 MM HG (80-95); ABG TCO2 19.9 MMOL/L (23-27)
[2019-02-27] MEDS: FAMOTIDINE 20 MG/2 ML VIAL IV SCH (04:46)
[2019-02-27 04:48] LABS: Basophils % 0.1 % (0.0-0.8); Hematocrit 27.4 VOL% (35.7-47.0); Hemoglobin 8.4 GM/DL (12.0-16.0); Immature Granulocytes % 2.5 %; Immature Granulocytes Absolute 0.23 #; Lymphocytes # 0.9 10*3/uL (1.4-4.0); Lymphocytes % 9.6 % (21.3-54.2); Mean Corpuscular HGB Conc 30.7 GM/DL (32-36); Mean Corpuscular Volume 98.9 FL (87-102); Mean Platelet Volume 11.3 FL (9.6-12.0); Monocytes % 7.7 % (1.7-12.7); NRBC # 0.03 10*3/uL; Neutrophils % 80.1 % (38.7-73.9); Platelet Count 278 T/CUMM (130-400); Red Blood Count 2.77 MC/CUMM (3.8-5.5); Red Cell Distribution Width 16.2 % (9.3-17.3); White Blood Count 9.2 T/CUMM (4-12)
[2019-02-27 05:26] LABS: Calcium 8.9 MG/DL (8.5-10.1); Osmolality,Calculated 318.5 MOS/KG (273-304)
[2019-02-27] MEDS: LEVOTHYROXINE 150 MCG TABLET PEG SCH (09:33)
[2019-02-27] MEDS: THEOPHYLLINE ER (24 HR) 400 MG CAPSULE PO SCH (09:33)
[2019-02-27] MEDS: amLODIPine 5 MG TABLET PO SCH (09:33)
[2019-02-27] MEDS: AMIODARONE 200 MG TABLET PEG SCH ×2 (09:33→20:20)
[2019-02-27] MEDS: hydrALAZINE 25 MG TABLET PEG SCH ×2 (09:33→20:18)
[2019-02-27] MEDS: ENOXAPARIN 30 MG/0.3 ML SYRINGE SUBCUT SCH (09:34)
[2019-02-27] MEDS: MULTIVITAMIN LIQUID (CENTRUM) 60 ML BOTTLE PER TUBE SCH (09:34)
[2019-02-27] MEDS: INSULIN GLARGINE 100 UNIT/ML SUBCUT SCH ×2 (09:34→20:18)
[2019-02-27] MEDS: LEVOFLOXACIN INJ 750 MG in PREMIX 1 EACH IV SCH (09:36)
[2019-02-27] MEDS: METOPROLOL TARTRATE 50 MG TABLET PER TUBE SCH ×2 (11:02→20:19)
[2019-02-27] MEDS: ASPIRIN CHEW 81 MG TABLET PO SCH (20:19)
[2019-02-27] MEDS: ATORVASTATIN 20 MG TABLET PEG SCH (20:19)
[2019-02-28] MEDS: ALBUTEROL/IPRATROPIUM 3 ML NEB RESP TX SCH ×4 (00:07→20:51)
[2019-02-28] MEDS: INSULIN REGULAR 100 UNIT/ML SUBCUT SCH ×6 (00:25→22:09)
[2019-02-28] MEDS: methylPREDNISolone SOD SUC 40 MG/1 ML VIAL IV SCH ×4 (00:25→22:11)
[2019-02-28 03:31] LABS: ABG Base Excess -2.2 MMOL/L (-2.5-2.5); ABG HCO3 22.4 MMOL/L (20-26); ABG Oxygen Saturation 89.4 % (95-100); ABG PCO2 38.5 MM HG (35-48); ABG PH 7.377 (7.35-7.45); ABG PO2 57.7 MM HG (80-95); ABG TCO2 20.5 MMOL/L (23-27); Allen Test Positive; Pt O2 Delivery Device Other
[2019-02-28 04:36] LABS: Hematocrit 26.2 VOL% (35.7-47.0); Hemoglobin 7.9 GM/DL (12.0-16.0); Immature Granulocytes Absolute 0.15 #; Lymphocytes # 0.7 10*3/uL (1.4-4.0); Lymphocytes % 9.4 % (21.3-54.2); Mean Corpuscular HGB Conc 30.2 GM/DL (32-36); Mean Corpuscular Volume 98.1 FL (87-102); Mean Platelet Volume 11.1 FL (9.6-12.0); Monocytes % 7.3 % (1.7-12.7); NRBC # 0.02 10*3/uL; Neutrophils % 81.3 % (38.7-73.9); Platelet Count 266 T/CUMM (130-400); Red Blood Count 2.67 MC/CUMM (3.8-5.5); White Blood Count 7.4 T/CUMM (4-12)
[2019-02-28] MEDS: FAMOTIDINE 20 MG/2 ML VIAL IV SCH (04:50)
[2019-02-28 05:04] LABS: Calcium 8.9 MG/DL (8.5-10.1); Osmolality,Calculated 323.1 MOS/KG (273-304)
[2019-02-28] MEDS: INSULIN GLARGINE 100 UNIT/ML SUBCUT SCH ×2 (10:15→22:07)
[2019-02-28] MEDS: AMIODARONE 200 MG TABLET PEG SCH ×2 (10:16→22:06)
[2019-02-28] MEDS: hydrALAZINE 25 MG TABLET PEG SCH ×2 (10:16→22:06)
[2019-02-28] MEDS: LEVOTHYROXINE 150 MCG TABLET PEG SCH (10:17)
[2019-02-28] MEDS: ENOXAPARIN 30 MG/0.3 ML SYRINGE SUBCUT SCH (10:17)
[2019-02-28] MEDS: THEOPHYLLINE ER (24 HR) 400 MG CAPSULE PO SCH (10:17)
[2019-02-28] MEDS: amLODIPine 5 MG TABLET PO SCH (10:17)
[2019-02-28] MEDS: METOPROLOL TARTRATE 50 MG TABLET PER TUBE SCH ×2 (10:17→22:07)
[2019-02-28] MEDS: MULTIVITAMIN LIQUID (CENTRUM) 60 ML BOTTLE PER TUBE SCH (10:24)
[2019-02-28] MEDS: ATORVASTATIN 20 MG TABLET PEG SCH (22:06)
[2019-02-28] MEDS: ASPIRIN CHEW 81 MG TABLET PO SCH (22:06)
[2019-03-01] MEDS: INSULIN REGULAR 100 UNIT/ML SUBCUT SCH ×6 (00:36→21:18)
[2019-03-01] MEDS: ALBUTEROL/IPRATROPIUM 3 ML NEB RESP TX SCH ×4 (01:08→19:34)
[2019-03-01] MEDS: FAMOTIDINE 20 MG/2 ML VIAL IV SCH (05:06)
[2019-03-01] MEDS: INSULIN GLARGINE 100 UNIT/ML SUBCUT SCH ×2 (10:40→21:27)
[2019-03-01] MEDS: LEVOFLOXACIN INJ 750 MG in PREMIX 1 EACH IV SCH (10:41)
[2019-03-01] MEDS: ENOXAPARIN 30 MG/0.3 ML SYRINGE SUBCUT SCH (10:41)
[2019-03-01] MEDS: methylPREDNISolone SOD SUC 40 MG/1 ML VIAL IV SCH ×2 (10:41→23:39)
[2019-03-01] MEDS: THEOPHYLLINE ER (24 HR) 400 MG CAPSULE PO SCH (10:42)
[2019-03-01] MEDS: hydrALAZINE 25 MG TABLET PEG SCH ×2 (10:42→21:27)
[2019-03-01] MEDS: LEVOTHYROXINE 150 MCG TABLET PEG SCH (10:42)
[2019-03-01] MEDS: amLODIPine 5 MG TABLET PO SCH (10:42)
[2019-03-01] MEDS: METOPROLOL TARTRATE 50 MG TABLET PER TUBE SCH ×2 (10:42→21:28)
[2019-03-01] MEDS: AMIODARONE 200 MG TABLET PEG SCH ×2 (10:53→21:28)
[2019-03-01] MEDS: MULTIVITAMIN LIQUID (CENTRUM) 60 ML BOTTLE PER TUBE SCH (13:38)
[2019-03-01] MEDS: ASPIRIN CHEW 81 MG TABLET PO SCH (21:27)
[2019-03-01] MEDS: ATORVASTATIN 20 MG TABLET PEG SCH (21:28)
[2019-03-02] MEDS: INSULIN REGULAR 100 UNIT/ML SUBCUT SCH ×6 (00:09→22:12)
[2019-03-02] MEDS: ALBUTEROL/IPRATROPIUM 3 ML NEB RESP TX SCH ×4 (00:40→19:39)
[2019-03-02] MEDS: FAMOTIDINE 20 MG/2 ML VIAL IV SCH (05:11)
[2019-03-02 06:06] LABS: Calcium 8.7 MG/DL (8.5-10.1); Osmolality,Calculated 324.7 MOS/KG (273-304); Prealbumin 36.4 MG/DL (20-40)
[2019-03-02] MEDS: amLODIPine 5 MG TABLET PO SCH (09:12)
[2019-03-02] MEDS: LEVOTHYROXINE 150 MCG TABLET PEG SCH (09:12)
[2019-03-02] MEDS: THEOPHYLLINE ER (24 HR) 400 MG CAPSULE PO SCH (09:12)
[2019-03-02] MEDS: METOPROLOL TARTRATE 50 MG TABLET PER TUBE SCH ×2 (09:12→22:13)
[2019-03-02] MEDS: INSULIN GLARGINE 100 UNIT/ML SUBCUT SCH ×2 (09:12→22:12)
[2019-03-02] MEDS: AMIODARONE 200 MG TABLET PEG SCH ×2 (09:12→22:13)
[2019-03-02] MEDS: ENOXAPARIN 30 MG/0.3 ML SYRINGE SUBCUT SCH (09:13)
[2019-03-02] MEDS: hydrALAZINE 25 MG TABLET PEG SCH ×2 (09:20→22:13)
[2019-03-02] MEDS: MULTIVITAMIN LIQUID (CENTRUM) 60 ML BOTTLE PER TUBE SCH (09:20)
[2019-03-02] MEDS: methylPREDNISolone SOD SUC 40 MG/1 ML VIAL IV SCH (09:38)
[2019-03-02 10:09] LABS: Basophils % 0.1 % (0.0-0.8); Hematocrit 31.3 VOL% (35.7-47.0); Hemoglobin 9.5 GM/DL (12.0-16.0); Immature Granulocytes % 1.6 %; Immature Granulocytes Absolute 0.14 #; Lymphocytes # 0.8 10*3/uL (1.4-4.0); Lymphocytes % 9.1 % (21.3-54.2); Mean Corpuscular HGB Conc 30.4 GM/DL (32-36); Mean Corpuscular Volume 98.1 FL (87-102); Mean Platelet Volume 10.6 FL (9.6-12.0); Monocytes % 7.1 % (1.7-12.7); NRBC # 0.04 10*3/uL; Neutrophils % 82.1 % (38.7-73.9); Platelet Count 310 T/CUMM (130-400); Red Blood Count 3.19 MC/CUMM (3.8-5.5); Red Cell Distribution Width 15.9 % (9.3-17.3); White Blood Count 8.8 T/CUMM (4-12)
[2019-03-02] MEDS ORDERED: LEVOFLOXACIN 750 MG TABLET PO SCH (14:00)
[2019-03-02] MEDS ORDERED: FUROSEMIDE 40 MG/4 ML VIAL IV ONE (15:19)
[2019-03-02] MEDS ORDERED: VANCOMYCIN INJ 1,250 MG in SODIUM CHLORIDE 0.9% 250 ML IV SCH (18:00)
[2019-03-02] MEDS: ATORVASTATIN 20 MG TABLET PEG SCH (22:13)
[2019-03-02] MEDS: ASPIRIN CHEW 81 MG TABLET PO SCH (22:13)
[2019-03-03] MEDS: INSULIN REGULAR 100 UNIT/ML SUBCUT SCH ×5 (00:58→15:56)
[2019-03-03] MEDS: ALBUTEROL/IPRATROPIUM 3 ML NEB RESP TX SCH ×3 (01:10→13:17)
[2019-03-03 04:57] LABS: Basophils % 0.2 % (0.0-0.8); Hematocrit 32.2 VOL% (35.7-47.0); Hemoglobin 9.7 GM/DL (12.0-16.0); Immature Granulocytes % 1.2 %; Immature Granulocytes Absolute 0.12 #; Lymphocytes % 10.1 % (21.3-54.2); Mean Corpuscular HGB Conc 30.1 GM/DL (32-36); Mean Corpuscular Volume 98.8 FL (87-102); Mean Platelet Volume 10.6 FL (9.6-12.0); Monocytes % 10.6 % (1.7-12.7); NRBC # 0.04 10*3/uL; Neutrophils % 77.9 % (38.7-73.9); Platelet Count 312 T/CUMM (130-400); Red Blood Count 3.26 MC/CUMM (3.8-5.5); Red Cell Distribution Width 15.9 % (9.3-17.3)
[2019-03-03] MEDS: FAMOTIDINE 20 MG/2 ML VIAL IV SCH (05:20)
[2019-03-03] MEDS ORDERED: predniSONE 20 MG TABLET PO SCH (09:00)
[2019-03-03] MEDS: LEVOTHYROXINE 150 MCG TABLET PEG SCH (10:25)
[2019-03-03] MEDS: INSULIN GLARGINE 100 UNIT/ML SUBCUT SCH (10:36)
[2019-03-03] MEDS: amLODIPine 5 MG TABLET PO SCH (10:37)
[2019-03-03] MEDS: THEOPHYLLINE ER (24 HR) 400 MG CAPSULE PO SCH (10:37)
[2019-03-03] MEDS: METOPROLOL TARTRATE 50 MG TABLET PER TUBE SCH (10:37)
[2019-03-03] MEDS: AMIODARONE 200 MG TABLET PEG SCH (10:37)
[2019-03-03] MEDS: MULTIVITAMIN LIQUID (CENTRUM) 60 ML BOTTLE PER TUBE SCH (10:38)
[2019-03-03] MEDS: hydrALAZINE 25 MG TABLET PEG SCH (10:41)
[2019-03-03] MEDS: ENOXAPARIN 30 MG/0.3 ML SYRINGE SUBCUT SCH (10:41)
[2019-03-03 16:59] VITALS: BP 160/96
[2019-03-04] MEDS ORDERED: LEVOTHYROXINE 150 MCG TABLET PEG SCH (06:30)
== END 2019-03-03 16:55 | DRG 207 ==
LOC: EDUNIT# → EDBD → N.ED 23:58 → SUATTDRO 02-19 03:43 → N.EDINP 02-19 03:43 → N.ICU 02-19 04:08 → N.4E 02-28 20:28
PROVIDERS: ADMIT Family Medicine; ATTEND Internal Medicine